=== PATIENT | female | born 1950 | race Caucasian/White ===

== ENCOUNTER 2021-07-28 14:22 | Outpatient (CLI) | payer MEDICARE, SELFPAY ==
--- NOTE | 2021-07-31 13:33 | WPDPFTINT ---
PFT Procedure Performed PFT Procedure Performed Spirometry with Pre/Post Bronchodilator Plethysmography (Lung Vol) Diffusing Cap (DLCO) Flow Vol Loop PFT Interpretation Lung volumes were measured with the body plethysmography method. The lung volumes are unremarkable. Spirometry showed normal expiratory flow rates and a normal FEV1 to FVC ratio of 75%. Following administration of a bronchodilator there was no significant increase in the expiratory flow rates. Lung diffusion capacity is mildly reduced at 76% predicted. The flow volume loop is unremarkable. Impression: Spirometry and lung volumes within the normal range. Borderline normal lung diffusion capacity.
--- NOTE | 2021-07-31 13:36 | WPDSIXMINUTE ---
Six Minute Walk Procedure Procedure Performed Pulmonary Stress Test (6 min walk) Six Minute Walk This 6 minute walk test was carried out with the patient breathing ambient air. The pre test oxyhemoglobin saturation was 90 8%. The patient was able to walk over 426 m with no stops in between. The perceived dyspnea prior to 6 minute walk test was 1 and post testing was 2 on the Bing dyspnea scale. During the 6 minute walk test the oxyhemoglobin saturation remained over 95%. Impression: No evidence of oxyhemoglobin desaturation on this testing.
== END 2021-07-28 14:23 | disposition home or self-care (01) ==
LOC: ANHPFT 14:23
PROVIDERS: PCP Family Medicine; Visit Provider Nurse Practitioner Family
DX: J44.9 Chronic obstructive pulmonary disease, unspecified (principal); R06.02 Shortness of breath
CPT/HCPCS: 94060; 94726; 94729

== ENCOUNTER 2021-11-17 12:05 | Outpatient (CLI) | payer MEDICARE, SELFPAY ==
--- NOTE | ~2021-11-17 | MMUS_ITS ---
EXAMINATION: MM diagnostic marlyn BI w lane, US breast LT complete HISTORY: Left breast pain and clear discharge TECHNIQUE: Additional 3-D tomosynthesis images of the breasts were performed and synthetic 2-D images were generated. CAD analysis was submitted and interpreted. High resolution left complete breast ult rasound was performed. COMPARISON: None BREAST PARENCHYMAL COMPOSITION: Breast composed of scattered areas of fibroglandular density FINDINGS: MAMMOGRAPHIC FINDINGS: There are no suspicious masses, calcifications or architectural distortion in either breast to sugges t malignancy. ULTRASOUND: Complete US of all 4 quadrants of the the left and retroareolar region was reviewed. Normal heterogen eous echotexture. At 12:00, 3 cm from the nipple there is a 3 mm cyst. No suspicious masses to sugges t malignancy. IMPRESSION: 1. No evidence for malignancy in either breast. 2. Routine yearly screening mammogram and regular clinical breast examination are recommended. BI-RADS Category 2: Benign finding(s). Reviewed, dictated and finalized at location A. HOUSE TECHNICIAN IMPRESSION: 1. No evidence for malignancy in either breast. 2. Routine yearly screening mammogram and regular clinical breast examination a re recommended. BI-RADS Category 2: Benign finding(s).
== END 2021-11-17 12:06 | disposition home or self-care (01) ==
PROVIDERS: PCP Family Medicine; Visit Provider Obstetrics & Gynecology
DX: N64.52 Nipple discharge (principal)
CPT/HCPCS: 76641; 77062; 77066; G0279

== ENCOUNTER 2022-11-13 10:14 | Emergency (ER) | payer MEDICARE, SELFPAY ==
[2022-11-13 10:26] VITALS: BP 159/83; PULSE 80; RESP 16; TEMP 37.2; O2SAT 98
--- NOTE | 2022-11-13 10:33 | ED.GENADULT ---
HPI - General Adult General Chief complaint: Upper Respiratory Infection Stated complaint: SINUS PAIN/ CONGESTION Source: patient Mode of arrival: ambulatory Limitations: no limitations History of Present Illness HPI narrative: Patient presents for evaluation of sick symptoms for last week. Symptoms include sinus congestion, mucopurulent discharge from the nares, cough productive cough of green sputum, and scratchy throat. She denies any fever, chills, nausea, vomiting. She has chronic shortness of breath which she attributes to COPD. Shortness of breath is not worse than her baseline. She does not wear oxygen. She does not smoke. No recent sick contacts to her knowledge. She contacted her optical advisor told her to take some lfts-zft-ydncbia cough medication. It was ineffective. In the past azithromycin has helped. Related Data Home Medications Medication Instructions Recorded Confirmed albuterol sulfate 90 mcg/actuation 1 inhalation inhalation Q4H 09/17/19 08/28/22 aerosol inhaler (ProAir HFA) Allergies Allergy/AdvReac Type Severity Reaction Status Date / Time prednisone Allergy Intermediate anxiety, Verified 08/28/22 13:46 diarrhea, vomiting levofloxacin Allergy Unknown unk Verified 08/28/22 13:46 Review of Systems Review of Systems: CONSTITUTIONAL: Denies fever, chills, or sweats. EYES: Denies visual changes, redness, or discharge. ENT: Reports Sinus congestion, mucopurulent discharge from her nares, sore throat. Denies otalgia. CARDIOVASCULAR: Denies chest pain, palpitations, or edema. RESPIRATORY: Reports productive cough of green sputum. Reports chronic SOB, unchanged from her baselin GASTROINTESTINAL: Denies abdominal pain, nausea, vomiting, or diarrhea. GENITOURINARY: Denies dysuria or hematuria. SKIN: Denies rash or itching. MUSCULOSKELETAL: Denies back pain, joint pain, or myalgia. NEUROLOGIC: Denies headache, numbness, dizziness, or weakness. PSYCHIATRIC: Denies anxiety or depression. [facility] Past Medical History Medical History COPD (chronic obstructive pulmonary disease) Former smoker History of COVID-19 Iron deficiency anemia Surgical History Surgical History No pertinent past surgical history Family History Family History Father Family history of heart disease in male family member before age 55 Mother Family history of heart disease in male family member before age 55 Sibling Family history of heart disease in male family member before age 55 Other Cerebrovascular accident Family history of cardiovascular disease Social History Social History Smoking status: Former smoker Smoking end date: 09/30/76 Alcohol intake: current Exam Narrative: GENERAL: Well-appearing, well-nourished, and in no acute distress. HEAD: Normocephalic, atraumatic. EYES: PERRLA and EOMI. ENT: bilateral maxillary sinus tenderness. There is mucopurulent discharge in her nares. Mucous membranes moist. Oropharynx without tonsillar hypertrophy exudate or other lesions. Bilateral TMs pearly stevens nonbulging NECK: Supple. No adenopathy or masses. No carotid bruits or JVD CHEST: Clear to auscultation. No respiratory distress. No wheezes rales or rhonchi HEART: Regular rate and rhythm. No murmur heard. Normal peripheral pulses. ABDOMEN: Soft, nontender, nondistended, normal active bowel sounds. EXTREMITIES: Normal range of motion. No edema. SKIN: Warm, dry, no rash. NEURO: No focal deficits. Alert and oriented x3. PSYCH: Normal mood and affect. Course Course Emergency Course: This is a 72-year-old female with history of COPD that presented for evaluation of sick symptoms. She meets criteria for ABRS based on symptom duration and quality of
== END 2022-11-13 10:36 | disposition home or self-care (01) ==
PROVIDERS: Emergency Provider Nurse Practitioner; PCP Nurse Practitioner Family
DX: J01.90 Acute sinusitis, unspecified (principal); J44.9 Chronic obstructive pulmonary disease, unspecified; Z87.891 Personal history of nicotine dependence; Z86.16 Personal history of COVID-19
CPT/HCPCS: 99213; G0463

== ENCOUNTER 2024-01-30 10:00 | Outpatient (CLI) | payer MEDICARE, SELFPAY ==
[2024-01-30 10:28] LABS: Basophils Percent Auto 0.9 % (0.2-1.2); Eosinophils Absolute Auto 0.3 K/mm3 (0-0.3); Eosinophils Percent Auto 6.1 % (0-4.4); Hematocrit 42.4 % (37.0-47.0); Hemoglobin 13.3 g/dL (12.0-15.0); Immature Granulocyte Absolute 0.01 K/mm3 (0.00-0.031); Immature Granulocyte Percent A 0.2 % (0-0.5); Lymphocytes Percent Auto 32.7 % (18.3-44.2); Mean Corpuscular HGB Conc 31.4 g/dl (32-36); Mean Corpuscular Hemoglobin 27.9 pg (26-34); Mean Corpuscular Volume 89.1 fl (80-100); Mean Platelet Volume 9.4 fl (7.4-10.4); Monocytes Absolute Auto 0.4 K/mm3 (0.1-0.6); Monocytes Percent Auto 8.1 % (2.6-8.5); Neutrophils Absolute Auto 2.4 K/mm3 (1.3-6.7); Platelet Count Result 285 k/mm3 (150-375); Red Blood Count 4.76 M/mm3 (4.2-5.4); Red Cell Distribution Width 12.7 % (11.5-14.5); White Blood Count 4.6 K/mm3 (4.5-10.0)
[2024-01-30 17:26] LABS: Iron 97 ug/dL (37-170)
[2024-01-30 17:52] LABS: Percent Iron Saturation 32 % (20-50)
== END 2024-01-30 10:01 | disposition home or self-care (01) ==
PROVIDERS: Nurse Practitioner Family; PCP Nurse Practitioner Family; Visit Provider Internal Medicine Hematology & Oncology
DX: D50.9 Iron deficiency anemia, unspecified (principal)
CPT/HCPCS: 36415; 82607; 82728; 83540; 83550; 85025

== ENCOUNTER 2024-02-09 09:43 | Emergency (ER) | payer MEDICARE, SELFPAY ==
--- NOTE | ~2024-02-09 | XR_ITS ---
XR lumbar spine 2-3V DATE: 02/09/2024 10:11 INDICATION: Left back pain radiating to left leg for one month TECHNIQUE: AP, lateral, coned lateral lumbosacral views COMPARISON: None FINDINGS: There is osteopenia. Minimal lumbar dextroscoliosis. The included lower thoracic and lumbar pedicles are intact. No fracture or bone destruction is detect ed. There is degenerative change of the apophyseal joints particularly at L5-S1 with associated grade 1 a nterolisthesis at L5-S1. There is multilevel degenerative disc disease, most severe at L3-4. There is minimal retrolisthesis at L4-5. The sacroiliac joints are intact. There is extensive calcification of the abdominal aorta without evidence of aneurysm. Surgical clips overlying right upper quadrant, likely due to cholecystectomy. IMPRESSION: Osteopenia Minimal dextro scoliosis Multilevel degenerative disc disease, most severe at L3-4 Mild retrolisthesis at L4-5 Degenerative changes of apophyseal joints and associated grade 1 anterolisthesis at L5-S1 Reviewed, dictated and finalized at location A. IMPRESSION: Osteopenia Minimal dextro scoliosis Multilevel degenerative disc disease, most severe at L3-4 Mild retrolisthesis at L4-5 Degenerative changes of apophyseal joints and associated grade 1 anterolisthesi s at L5-S1
[2024-02-09 09:46] VITALS: BP 149/70; PULSE 76; RESP 20; TEMP 36.4; O2SAT 97
[2024-02-09] MEDS: KETOROLAC 30 MG/ML VIAL (*BKC) IM (10:03)
--- NOTE | 2024-02-09 10:13 | ED.GENADULT ---
HPI - General Adult General Chief complaint: Extremity Injury, Lower Stated complaint: back pain Time Seen by Provider: 02/09/24 09:51 History of Present Illness HPI narrative: Patient is a 73-year-old female who presents ER with left-sided sciatic up. Reports it has been an issue over the last month. She reaggravated last night when she was on the ground scrubbing her floors. It radiates towards the groin. No difficulty with urination or defecation. No lower extremity weakness or numbness. She has tried some Tylenol without improvement. Related Data Home Medications Medication Instructions Recorded Confirmed losartan 25 mg tablet 25 mg PO DAILY 06/27/23 06/27/23 Allergies Allergy/AdvReac Type Severity Reaction Status Date / Time prednisone Allergy Intermediate anxiety, Verified 02/09/24 09:46 diarrhea, vomiting levofloxacin Allergy Unknown unk Verified 02/09/24 09:46 Review of Systems Constitutional: Constitutional: Reports no additional constitutional complaints PMFSH Past Medical History Medical History COPD (chronic obstructive pulmonary disease) Former smoker History of COVID-19 Iron deficiency anemia Surgical History Surgical History No pertinent past surgical history Family History Family History Father Family history of heart disease in male family member before age 55 Mother Family history of heart disease in male family member before age 55 Sibling Family history of heart disease in male family member before age 55 Other Cerebrovascular accident Family history of cardiovascular disease Social History Social History Smoking status: Former smoker Smoking end date: 09/30/76 Alcohol intake: current Exam Narrative: GENERAL: Well-appearing, well-nourished, and in no acute distress. HEAD: Normocephalic, atraumatic. Mucous membranes moist. CHEST: Clear to auscultation. No respiratory distress. HEART: Regular rate and rhythm. Normal peripheral pulses. Back: No midline tenderness at T/L-spine. There is moderate tenderness of left SI region. EXTREMITIES: Normal range of motion. No edema. NEURO: Alert and oriented x3. PSYCH: Normal mood and affect. Course Course Emergency Course: pain improved with Toradol. Discussed conservative care with anti-inflammatories muscle relaxers. Patient verbalized understanding. Discharge home. Vital Signs Vital signs: Vital Signs Temperature 97.6 F 02/09/24 09:46 Pulse Rate 76 02/09/24 09:46 Respiratory Rate 20 02/09/24 09:46 Blood Pressure 149/70 H 02/09/24 09:46 Pulse Oximetry 97 02/09/24 09:46 Oxygen Delivery Room Air 02/09/24 09:46 Temperature 97.6 F 02/09/24 09:46 Pulse Rate 76 02/09/24 09:46 Respiratory Rate 20 02/09/24 09:46 Blood Pressure 149/70 H 02/09/24 09:46 Pulse Oximetry 97 02/09/24 09:46 Oxygen Delivery Room Air 02/09/24 09:46 Medical Decision Making Vital Signs Vital Signs: Vital Signs Temperature 97.6 F 02/09/24 09:46 Pulse Rate 76 02/09/24 09:46 Respiratory Rate 20 02/09/24 09:46 Blood Pressure 149/70 H 02/09/24 09:46 Pulse Oximetry 97 02/09/24 09:46 Oxygen Delivery Room Air 02/09/24 09:46 Temperature 97.6 F 02/09/24 09:46 Pulse Rate 76 02/09/24 09:46 Respiratory Rate 20 02/09/24 09:46 Blood Pressure 149/70 H 02/09/24 09:46 Pulse Oximetry 97 02/09/24 09:46 Oxygen Delivery Room Air 02/09/24 09:46 Discharge Plan Discharge Clinical Impression: Sciatica Patient Disposition: Home, Self-Care Condition: Stable Instructions: Sciatica (ED) Additional Instructions: Please return to the emergency department if you develop severe pain that is not controlled b
== END 2024-02-09 11:15 | disposition home or self-care (01) ==
PROVIDERS: Emergency Provider Emergency Medicine; PCP Registered Nurse
DX: M54.32 Sciatica, left side (principal); J44.9 Chronic obstructive pulmonary disease, unspecified; Z87.891 Personal history of nicotine dependence; Z86.16 Personal history of COVID-19; Z86.2 Personal history of diseases of the blood and blood-forming organs and certain disorders involving the immune mechanism
CPT/HCPCS: 72100; 96372; 99283; J1885

== ENCOUNTER 2024-05-13 00:52 | Day surgery (SDC) | payer MEDICARE, SELFPAY ==
--- NOTE | 2024-05-07 08:03 | PM.IMHP ---
H&P: HPI History of Present Illness Date/Time: 05/07/24 08:03 Chief Complaint: Patient presents shoulder pain right. She has rotator cuff tear and has tried extensive conservative treatment. As she is at the point where she would like surgical reconstruction. Review of Systems Musculoskeletal: Musculoskeletal: Reports arthralgias, Reports joint swelling and Reports stiffness [facility] Past Medical History Medical History COPD (chronic obstructive pulmonary disease) Former smoker History of COVID-19 Iron deficiency anemia Surgical History Surgical History No pertinent past surgical history Family History Family History (Updated 04/21/24 @ 08:48 by SHERICE Pugh) Father Family history of heart disease in male family member before age 55 Heart disease Mother Family history of heart disease in male family member before age 55 Sibling Family history of heart disease in male family member before age 55 Heart disease Mouth cancer Sibling Heart disease Other Cerebrovascular accident Family history of cardiovascular disease Social History Social History (Updated 04/21/24 @ 08:49 by SHERICE Pugh) Smoking status: Former smoker Second hand tobacco smoke exposure: Yes Smoking end date: 09/30/76 Alcohol intake: current Substance use: never Substance use type: does not use Do You Feel Safe in your Home?: Yes Lack of Transportation: No Lack of Food: Never True Current Housing: I Have Housing Concerned About Future Housing: No Difficulty Paying Gas/Electric Bills: No Difficulty Paying for Meds: No Currently Unemployed: No Education: High School Diploma/GED Difficulty w/ Childcare or Family Care: No Living arrangements: with family Occupation/Education: retired 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[employer] Gender identity (if verbalized by the patient): Female Meds Home Medications and Allergies Home Medications Medication Instructions Recorded Confirmed Type fluticasone propionate 115 See Rx Instructions .Route 01/28/23 04/21/24 Rx mcg-salmeterol 21 mcg/actuation .COMPLEX #12 grams HFA inhaler (Advair HFA) losartan 25 mg tablet 25 mg PO DAILY 06/27/23 04/21/24 History diclofenac sodium 75 mg 75 mg PO BID #60 tabs 03/24/24 04/21/24 Rx tablet,delayed release Allergies Allergy/AdvReac Type Severity Reaction Status Date / Time prednisone Allergy Intermediate anxiety, Verified 04/21/24 08:46 diarrhea, vomiting levofloxacin AdvReac Intermediate Nausea Verified 04/21/24 08:46 Exam Narrative: On exam she has difficulty raising arm above the horizontal. She is weak in abduction external rotation is impingement. She is tender over the AC joint as well. Neurologically she appears to be grossly intact. Although she does have a bit of weakness and give-way. Shoulder X-Ray 02/20/24 Orthopedics Result Report 02/20/24 Lumbar Spine X-Ray 02/09/24 Assessment and Plan Assessment and plan (1) Rotator cuff tear, right: Code(s): M75.101 - Unspecified rotator cuff tear or rupture of right shoulder, not specified as traumatic Status: Acute Assessment and Plan: Patient has rotator cuff tear right. She has got some acromioclavicular arthritis as well.. She has failed conservative treatment. She would like to consider surgical reconstruction. I have discussed treatment options with the risks, benefits, limitations, and alternatives in detail. She understands and agrees would like to proceed. She is well aware the fact that on the repair depends on the size of the tear as well as the quality of the tissue available. Will proceed per her request. (2) Acromioclavicular joint arthritis: Code(s): M19.019 - Prima
[2024-05-11 09:29] VITALS: BMI 30.1
--- NOTE | 2024-05-11 09:30 | PC.NURSE ---
Report to the Outpatient Waiting Room, entrance under the green pavilion located off [facility], at time __8:00 AM on date _05/13/24 . Planned Procedure Time: _10:00 AM . Time changes happen often and if your time is changed the preop area will call you the afternoon before. - You and your visitor will be asked to self-screen and do not enter if you have any COVID symptoms. - A mask is optional within the hospital at this time. Patients may have clear liquids (water, carbonated beverages, clear teas, apple juice) until 3 hours prior to surgery (7:00AM)with a maximum of 20 ounces. - No food from midnight until time of surgery - Infants may have breast milk until 4 hours before surgery, infant formula 6 hours prior to surgery. - Children will be allowed to drink immediately following surgery. If applicable, please bring a bottle or sippy cup to assist with drinking. Juice, water, soda, and popsicles are readily available. For infants on formula, please bring formula the day of surgery. Pacifiers are allowed. Take the following medications with a SIP of water the morning of surgery: ____ADVAIR INHALER DO NOT STOP ANY OF YOUR OTHER PRESCRIPTION MEDICATIONS PRIOR TO SURGERY ?EXCEPT THE FOLLOWING Medications to discontinue per physician DICLOFENAC PER DR UNNEZ,HOLD ALL VITAMINS AND SUPPLEMENTS 3 DAYS PRE OP.PT STATES LAST DOSE 05/10/24 Please no make-up, nail azeri, hairspray, perfume, deodorant, or body powder the day of surgery. No jewelry (including any body piercings) or valuables the day of surgery, leave them at home. Please take a shower or bath the night before, or the morning of, surgery with an antibacterial soap. Wear comfortable, loose fitting clothing. Children are encouraged to wear pajamas. - Jewelry must be removed prior to entering the operating room. Rings and piercings that are not removed may be cut off. - The hospital will not accept responsibility for valuables. - Please leave all valuables, including medications, at home the day of surgery. If you are going home after surgery, a licensed construction driver must drive you home. - NO public transportation without another adult if you receive anesthesia. - We recommend that an adult stay with you for 24 hours following discharge. - We also recommend that you do not drive, make important decision, drink alcoholic beverages, or take any drugs that were not prescribed by your health care provider for at least 24 hours after your discharge time. Follow any additional instructions given to you from your surgeon. If you or anyone in your household have experienced Covid symptoms in the past week, please notify your surgeon or the nurse liaison at the phone number below for possible testing. Telephone instructions given to __PATIENT and asked if any additional questions and then verbalized understanding. Patient advised to call surgeon office or pre surgery nurse liaison [phone] if any additional questions.
[2024-05-13] VITALS (11 sets, daily range): BP systolic 130–179; BP diastolic 62–82; PULSE 51–78; RESP 10–20; TEMP 36.1; O2SAT 93–99
[2024-05-13] MEDS: LACTATED RINGERS 1,000 ML 30 ML IV CONT ×2 (08:40→11:00)
--- NOTE | 2024-05-13 08:48 | WPDANESEPPF ---
Anes - Initial Pre Proc Eval Procedure: Operation Date: 05/13/24 10:00 Proposed Procedures p Right Shoulder Arthroscopy with Open Rotator Cuff Repair and Distal Clavicle Excision - Farrukh Gamboa MD Date/Time: 05/13/24 08:48 Surgeon: Farrukh Gamboa MD Pre Op Diagnosis: Right Shoulder Rotator cuff tear, ac arthritis Patient Data Age: 73 Gender: F Height: 1.52 m Weight: 69.9 kg Last Vital Signs Temp 36.1 C L 05/13/24 08:10 Pulse 61 05/13/24 08:10 Resp 18 05/13/24 08:10 BP 179/67 H 05/13/24 08:10 Pulse Ox 99 05/13/24 08:10 O2 Del Method Room Air 05/13/24 08:10 Allergies Allergy/AdvReac Type Severity Reaction Status Date / Time prednisone Allergy Intermediate anxiety, Verified 05/13/24 08:43 diarrhea, vomiting levofloxacin AdvReac Intermediate Nausea Verified 05/13/24 08:43 Home Medications Medication Instructions Recorded Confirmed Type diclofenac sodium 75 mg 75 mg PO BID #60 tabs 03/24/24 05/13/24 Rx tablet,delayed release fluticasone propionate 115 2 puff inhalation QAM 05/11/24 05/13/24 History mcg-salmeterol 21 mcg/actuation HFA inhaler (Advair HFA) lisinopril 10 mg tablet 10 mg PO DAILY 05/11/24 05/13/24 History quinine-vitamin E capsule 1 cap PO QPM 05/11/24 05/13/24 History Patient hx anesthesia problems: none Family hx anesthesia problems: none Results Review: All pre-operative results and documents have been reviewed as part of the pre-operative evaluation. [facility] Past Medical History Medical History COPD (chronic obstructive pulmonary disease) Former smoker History of COVID-19 Iron deficiency anemia Surgical History Surgical History No pertinent past surgical history Family History Family History Father Family history of heart disease in male family member before age 55 Heart disease Mother Family history of heart disease in male family member before age 55 Sibling Family history of heart disease in male family member before age 55 Heart disease Mouth cancer Sibling Heart disease Other Cerebrovascular accident Family history of cardiovascular disease Social History Social History Smoking packs per day: 1 Smoking cigarettes per day: 20.0 Years smoked: 20 Smoking pack-years: 20.00 Smoking status: Former smoker Tobacco type: cigarettes Second hand tobacco smoke exposure: Yes Smoking end date: 09/30/76 Additional smoking assessment comments: UP UNTIL 2013 WOULD SMOKE MAYBE COUPLE CIGARETTES EVERY NOW AND THEN Alcohol intake: current Alcohol use details: 2-3 DRINKS PER MONTH Substance use: never Substance use type: does not use Do You Feel Safe in your Home?: Yes Lack of Transportation: No Lack of Food: Never True Current Housing: I Have Housing Concerned About Future Housing: No Difficulty Paying Gas/Electric Bills: No Difficulty Paying for Meds: No Currently Unemployed: No Education: High School Diploma/GED Difficulty w/ Childcare or Family Care: No Living arrangements: with family Occupation/Education: retired 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
[2024-05-13] MEDS: KETOROLAC 15 MG/ML VIAL (*BKC) IV PUSH (08:51)
[2024-05-13] MEDS: ACETAMINOPHEN 500 MG TABLET 1000 MG PO (08:52)
--- NOTE | 2024-05-13 09:04 | WPDHPUPDATE1 ---
History and Physical Update Update Date/Time: 05/13/24 09:04 History and Physical has been reviewed, including an updated exam of the patient. There are NO changes in the patient's condition. Risks, benefits, and alternatives have been discussed and questions answered. Patient agrees to proceed with procedure. Rotator Cuff Repair and Distal Clavicle Excision
[2024-05-13] MEDS: ceFAZolin 2 GM/D5W 50 ML 2 GM/50 ML BAG IVPB (09:45)
[2024-05-13] MEDS: LIDO 1%/EPINEPHRINE 1:100,000 20 ML VIAL 50 ML INFILTRATE (10:19)
--- NOTE | 2024-05-13 10:51 | W.PM.PROC2 ---
Procedure Note - Detailed Date of Procedure 05/13/24 Pre-op Diagnosis Right Shoulder Rotator cuff tear, ac arthritis Post-op Diagnosis Same Procedure Performed Rotator cuff repair, distal clavicle excision Surgeon Farrukh Gamboa MD Anesthesia General Indications Jameel Description of Procedure Patient brought to the operative room #7. A general anesthetic was administered. The patient was placed in the beach chair position with the RIGHT shoulder exposed.? After sterile prep and drape, standard posterior and lateral portals were used for arthroscopy. The joint itself looked reasonably good the biceps tendon was intact.? There was fraying and tearing of the rotator cuff area in the supraspinatus tear region. This was gently debrided.? The subacromial space had an intense bursa, this was debrided with a shaver and acromioplasty performed arthroscopically.? The subacromial space was quite tight initially. I then proceeded to open the shoulder. A longitudinal incision made from the AC joint distalward over the shoulder.? Dissection carried down to the fascia. The fascia overlying the acromioclavicular joint was split. The AC joint found and a distal clavicle excision performed removing 3 to 4 millimeters of bone.? The edges beveled.? The deltoid was then split from the tip of the acromion. The remainder of the bursa was debrided.? The rotator cuff was torn in the Infraspinatus-supraspinatus interval. The tear was quarter sized. This was debrided and repaired to bone using #2 Ethibond suture.? Because of the size of the tear, a Mitek anchor was used to supplement the repair. At this point the deltoid was repaired to itself,the acromion and the trapezius #2 Ethibond. The skin was closed with 2-0 Vicryl and ashleigh.? Sterile dressing applied patient tolerated well left the operating room satisfactory condition. Estimated Blood Loss 50 Drains No Packing No Pathology None sent Complications No immediate complications Condition Stable Disposition PACU [facility] Billing Surgery - Charge Forward: Surgery Billing ([id number] Rotator Cuff Repair// [id number] Distal Clavicle Excision)
[2024-05-13] MEDS: fentaNYL CITRATE INJ (*CRX) 100 MCG/2 ML VIAL 25 MCG IV PUSH ×3 (11:39→11:49)
[2024-05-13] MEDS: oxyCODONE HCL (*CRX) 5 MG TAB IR PO (13:34)
== END 2024-05-13 14:25 | disposition home or self-care (01) ==
PROVIDERS: PCP Registered Nurse; Visit Provider Orthopaedic Surgery
PROC: (CPT 29805; principal; 2024-05-13 10:00)
DX: M75.101 Unspecified rotator cuff tear or rupture of right shoulder, not specified as traumatic (principal); M19.011 Primary osteoarthritis, right shoulder; J44.9 Chronic obstructive pulmonary disease, unspecified; Z79.51 Long term (current) use of inhaled steroids; Z87.891 Personal history of nicotine dependence; E66.9 Obesity, unspecified; Z68.30 Body mass index [BMI] 30.0-30.9, adult
CPT/HCPCS: 23412; 23120; A9270; C1713; J0330; J0690; J1100; J1885; J2405; J2704; J3010; J7120

== ENCOUNTER 2024-07-22 09:57 | Outpatient (CLI) | payer MEDICARE, SELFPAY ==
[2024-07-22 10:28] LABS: Basophils Percent Auto 0.7 % (0.2-1.2); Eosinophils Absolute Auto 0.3 K/mm3 (0-0.3); Eosinophils Percent Auto 6.1 % (0-4.4); Hematocrit 39.7 % (37.0-47.0); Hemoglobin 12.6 g/dL (12.0-15.0); Immature Granulocyte Absolute 0.01 K/mm3 (0.00-0.031); Immature Granulocyte Percent A 0.2 % (0-0.5); Lymphocytes Absolute Auto 1.29 K/mm3 (0.9-3.2); Lymphocytes Percent Auto 23.2 % (18.3-44.2); Mean Corpuscular HGB Conc 31.7 g/dl (32-36); Mean Corpuscular Hemoglobin 27.9 pg (26-34); Mean Corpuscular Volume 87.8 fl (80-100); Mean Platelet Volume 9.2 fl (7.4-10.4); Monocytes Absolute Auto 0.4 K/mm3 (0.1-0.6); Monocytes Percent Auto 7.5 % (2.6-8.5); Neutrophils Absolute Auto 3.5 K/mm3 (1.3-6.7); Neutrophils Percent Auto 62.3 % (45.5-73.1); Platelet Count Result 315 k/mm3 (150-375); Red Blood Count 4.52 M/mm3 (4.2-5.4); Red Cell Distribution Width 12.5 % (11.5-14.5); White Blood Count 5.6 K/mm3 (4.5-10.0)
[2024-07-22 11:18] LABS: Anion Gap 7 mmol/L (4-12); Blood Urea Nitrogen 20 mg/dL (7-17); Calcium 9.5 mg/dL (8.4-10.2); Carbon Dioxide 23 mmol/L (22-30); Chloride 107 mmol/L (98-107); Estimated Glomerular Filt Rate > 60; Glucose 93 mg/dL (65-110); Potassium 4.1 mmol/L (3.4-5.0); Sodium 137 mmol/L (137-145)
[2024-07-22 19:47] LABS: Iron 88 ug/dL (37-170)
[2024-07-22 19:59] LABS: Percent Iron Saturation 27 % (20-50)
== END 2024-07-22 09:58 | disposition home or self-care (01) ==
LOC: ANHLAB 10:00
PROVIDERS: PCP Registered Nurse; Visit Provider Internal Medicine Hematology & Oncology
DX: D64.9 Anemia, unspecified (principal)
CPT/HCPCS: 36415; 80048; 82607; 82728; 83540; 83550; 85025

== ENCOUNTER 2024-08-10 10:00 | Outpatient (RCR) | payer MEDICARE, SELFPAY ==
[2024-07-06 10:50] VITALS: BP_SYST 95
--- NOTE | 2024-07-06 11:54 | OPREHPOC ---
Outpatient Therapy Plan of Care This is a Multidisciplinary Plan of Care that may contain components documented by all disciplines (PT, OT, and ST.) PT Problem 1 PT Problem #1 Knowledge Deficit PT Goal 1 Goal / Goal Update *indep with HEP * correct shoulder position with exercises Target Visit 10 PT Problem 2 PT Problem #2 Pain PT Goal 1 Goal / Goal Update 1* pt report she is able to sleep in her bed/ no longer in recliner 2* pain rating of 2/10 at worst with increased activity Target Visit 10 PT Problem 3 PT Problem #3 Impaired Flexibility PT Goal 1 Goal / Goal Update increase R shoulder ROM, to improve use with reaching into cabinets, kitchen, home and self care tasks 1* flexion 140' 2* abduction 120 3* IR- reach behind back, palm to above waist 4* ER- reaching behind head, palm to back of head Target Visit 10 PT Problem 4 PT Problem #4 Impaired Strength PT Goal 1 Goal / Goal Update increase strength of R UE, for use of her dominant arm with home and self care activities: in standin reps 1* flexion to 120' with 2# hand weight 2* abduction to 90' with 2# hand weight Target Visit 10
--- NOTE | 2024-07-06 11:54 | PTOPEVAL1 ---
Assessment and note entered by Jenna Fischer, PT Evaluation Information Assessment Status Evaluation ICD-10 Condition Codes (PT) M25.511,Z47.89 Onset 05-13-24 Subjective Information had R rotator cuff repair 05-13-24; R hand dominant; since surgery, just been resting and not doing much; used sling until few weeks ago; told her to not do any lifting with R arm; Activity: prior to surgery-- indep and active; retired; want to return to fishing; since surgery---unable to wipe off kitchen table, lifting pans with cooking, vacuum; doing heavier chores; Reported Pain Level Pain Score Self Report Additional Pain Score Comments pain range in the past week: 1- 2/10; increase pain: reach out with R arm; quick motions with arm; lie on R side decrease pain: rest, tylenol PRN no longer using ice for pain; with sleeping- in recliner, sleep without pain; in the bed, pain wakes her up; Assessment PT Clinical Summary Maribell is 8 weeks post of R rotator cuff repair. She is R hand dominant, sling was removed 2 weeks ago and has been using her R arm with light activity at home. Self assessment QUICK DASH rating of 27% limitation in activity level. She is sleeping in the recliner due to shoulder pain. With the evaluation: R shoulder active ROM: flexion 105', abduction 90', IR- reach behind back palm to sacrum and ER- reach towards back of head, palm to behind her ear. Abduction is the most painful motion. Skilled PT services are indicated for modalities to decrease pain, therapeutic exercises- starting with active- assisted with progression to active and strengthening as tolerated, with education for posture and HEP. Plan of Care Interventions Electrical Stimulation,Hot Pack/Cold Pack,Manual Therapy,Neuro Re-education,Patient/Caregiver Education,Therapeutic Activities,Therapeutic Exercise,Ultrasound,Other Other Interventions taping PT Services Indicated Yes Treatment Frequency and 2x/wk for 10 visits Duration These treatments will address the objective and functional deficits as defined above. The patient will be advanced safely and appropriately in order for the patient to progress towards his/her prior level of function. Additional exercises will be introduced and as well as a comprehensive home exercise program upon discharge, if needed, ?to ensure carryover of functional gains achieved in the clinic. This treatment plan has been reviewed and agreement upon by the patient.
--- NOTE | 2024-08-10 10:37 | PTOPDC ---
Assessment and note entered by Jenna Fischer, PT Discharge Report Assessment Status Discharge ICD-10 Condition Codes (PT) M25.511,Z47.89 Onset 05-13-24 Subjective Information at home, am able to do everything she usually does but avoids lifting; have not been shaking out her floor rugs; was pleased and he released her; doing the exercises at home and using the band for strengthening. Reported Pain Level Pain Score Self Report Additional Pain Score Comments pain range in the past week 0-2/10; discomfort of shoulder when over do it; is sleeping in her bed; is not lying on her R side, but in the bed Assessment PT Clinical Summary Maribell has received 10 PT sessions Compared to the initial evaluation: pain has decreased; is able to sleep in the bed, instead of the recliner, but not able to lie on her R side; Self assessment Quick DASH rating from 27 to 5% limitation in activity; active ROM of R shoulder: flexion 140', abduction 140', IR- reach behind back, palm to above waist and ER- reaching behind head, palm to back of head. Strength R shoulder: shoulder flexion with 3# hand weight and shoulder abduction 2# hand weight x 5 reps; elbow flexion/extension 5# x 10 reps Bilateral UE lift floor/waist 10# x 6 reps; R hand carry 10# and walk 30'. The goals were achieved. Discharge PT services. She is to continue with her HEP. Plan of Care PT Services Indicated No
== END 2024-08-10 11:48 | disposition home or self-care (01) ==
LOC: ANHPT 10:00
PROVIDERS: PCP Registered Nurse; Visit Provider Orthopaedic Surgery
DX: Z48.89 Encounter for other specified surgical aftercare (principal); Z98.890 Other specified postprocedural states
CPT/HCPCS: 97014; 97035; 97110; 97140; 97161; 97530; G0283

== ENCOUNTER 2025-05-07 14:00 | Emergency (ER) | payer MEDICARE, SELFPAY ==
--- NOTE | ~2025-05-07 | XR_ITS ---
XR elbow LT min 3V 05/07/2025 14:51 Indication: Left elbow pain Procedure: 4 views left elbow Comparison: No prior studies for comparison. Findings: There is a joint effusion. No fracture, subluxation or dislocation is identified. Impression: 1: Moderate joint effusion. No fracture identified. Consider conservative therapy and repeat x-rays i n 7-to 10 days. Reviewed, dictated and finalized at location A. Impression: 1: Moderate joint effusion. No fracture identified. Consider conservative thera py and repeat x-rays in 7-to 10 days.
--- NOTE | ~2025-05-07 | CT_ITS ---
EXAMINATION: CT BRAIN W/O DATE: 05/07/2025 14:45 INDICATION: Fell off bathtub. Hit head. TECHNIQUE: Computed tomography (CT) of the head was performed without intravenous contrast. The dose- length product was 681.00 mGy-cm. COMPARISON: No prior studies for comparison. FINDINGS: Normal brain parenchymal volume for age. Normal stevens-white differentiation. No acute intrac ranial hemorrhage, infarction, mass or mass effect.66 No ventriculomegaly or midline shift. Midline sagittal images demonstrate a normal corpus callosum, c raniovertebral junction and sella turcica. Basilar cisterns are patent. Paranasal sinuses and mastoids are pneumatized. No depressed skull fractures. There is a mucous reten tion cyst of the right maxillary sinus. There is a left frontal craniotomy defect. There is a chronic left frontal lobe infarction near the vertex. IMPRESSION: 1. No acute intracranial abnormality. 2: Chronic left frontal lobe infarction near the vertex. Reviewed, dictated and finalized at location A.
--- NOTE | ~2025-05-07 | XR_ITS ---
XR wrist LT min 3V 05/07/2025 14:51 INDICATION: Left wrist pain after fall PROCEDURE: 4 views left wrist COMPARISON: No prior studies for comparison. FINDINGS: Fracture, dislocation or subluxation is not identified. The soft tissues appear within norm al limits. No foreign bodies are identified. IMPRESSION: 1: NO ACUTE BONE OR JOINT ABNORMALITY IDENTIFIED. Reviewed, dictated and finalized at location A.
[2025-05-07 14:03] VITALS: BP 145/75; PULSE 100; RESP 20; TEMP 36.6; O2SAT 98
--- OUTSIDE RECORDS SUMMARY | 2025-05-07 14:03 | XMS_ITS | Clinical Summary ---
Author Organization [facility]igil Address [address] [place] [address] Care Team Providers Care Seater Assembler Name Role Phone Unavailable Primary Care Provider Unavailabl e Allergies Active Allergy Reactions Criticality Noted Date Comments Levofloxacin Nausea and Vomiting Low 11/14/2020 Makes her feel wierd Prednisolone Nausea and Vomiting High 04/22/2020 Sulfa (Sulfonamide Antibiotics) Nausea and Vomiting High 04/22/2020 Medications Advair HFA 115-21 mcg/actuation HFA Aerosol Inhaler INL 2 PFS PO BID 04/14/2020 Active melatonin 3 mg Tablet Take by mouth. Active acetaminophen (TYLENOL) 325 mg tablet Take 650 mg by mouth. Active oxyCODONE (ROXICODONE) 5 mg tablet 01/26/2022 Active lisinopriL (PRINIVIL) 10 mg tablet Take 10 mg by mouth daily. 05/09/2023 Active Active Problems Problem Noted Date Diagnosed Date Iron deficiency anemia 04/22/2020 Encounters Date Type Department Care Team Description 04/14/2025 External Device Data STL ABSTRACTION Provider, Abstract 04/14/2025 External Device Data STL ABSTRACTION Provider, Abstract 03/16/2025 External Device Data STL ABSTRACTION Provider, Abstract 02/18/2025 External Device Data STL ABSTRACTION Provider, Abstract 02/17/2025 External Device Data STL ABSTRACTION Provider, Abstract 02/16/2025 External Device Data STL ABSTRACTION Provider, Abstract from Last 3 Months Family History Medical History Relation Name Comments Cancer Brother 1 Heart Disease Brother 3 Heart Disease Father Heart Disease Mother Relation Name Status Comments Brother 1 Alive Brother 2 Brother 3 Daughter Alive Father Mother Sister Alive Son Alive Social History Tobacco Use Types Packs/Day Years Used Date Smoking Tobacco: Former Cigarettes Q uit: 04/22/1968 Smokeless Tobacco: Never Tobacco Cessation:Counseling Given: Not Answered Alcohol Use Standard Drinks/Week Comments Yes 0 (1 standard drink = 0.6 oz pur e alcohol) OCASSIONLLY Comments No Sex and Gender Information Value Date Recorded Sex Assigned at Not on file Legal Sex Female 8:34 AM CDT Gender Identity Not on file Sexual Orientation Not on file Last Filed Vital Signs Vital Sign Reading Time Taken Comments Blood Pressure 137/64 07/27/2024 8:33 AM CDT Pulse 74 07/27/2024 8:33 AM CDT Temperature 36.7 C (98 F) 07/27/2024 8:33 AM CDT Respiratory Rate 16 07/27/2024 8:33 AM CDT Oxygen Saturation 97% 07/27/2024 8:33 AM CDT Inhaled Oxygen Concentration - - Weight 71.6 kg (157 lb 12.8 oz) 07/27/2024 8:33 AM CDT Height 152.4 cm (5') 05/10/2023 12:16 PM CDT Body Mass Index 30.82 05/10/2023 12:16 PM CDT Plan of Treatment Upcoming Encounters Date Type Department Care Team (Late st Contact Info) Description 07/29/2025 2:15 PM CDT Office Visit [facility] [place] [address] [place] [address] [facility] [address] [place] [address] Josep Steward MD [address] [facility] [address] [place] [address] Health Maintenance Due Date Last Done Comments DTAP/TDAP/TD VACCINES (1 - Tdap) 1968 PNEUMOCOCCAL VACCINE 50+ YEA RS (1 of 2 - PCV) 1968 FIT-DNA Q 3 years 1994 Flex Sig/CT Colonography Q 5 years 1994 ZOSTER VACCINE (1 of 2) 1999 OSTEOPOROSIS SCREENING 2014 FIT/FOBT Q 1 year 04/29/2021 04/29/2020 COVID-19 Vaccine (2023-2 5 season) 2024 07/06/2022, 07/11/2021, 12/18/2020, Additional history exists RSV VACCINE (60+ or ) (1 - 1-dose 75+ series) 2024 INFLUENZA VACCINE (#1) 2025 08/26/2023, 2021 COLORECTAL SCREENING 02/14/2028 02/13/2018 Colorectal Cancer Screening 02/14/2028 Procedures Procedure Name Priority Date/Time Associated Diagnosis Comments OCCULT BLOOD IMMUNOASSAY, COLORECTAL SCREEN Routine 04/29/2020 Chronic anemia from Last 3 Months or Most Recently Relevant to Health Maintenance Results * OCCULT BLOOD IMMUNOASSAY, COLORECTAL SCREEN (04/29/2020) Stool STOOL SPECIMEN / Unknown Josep Steward MD BODY FLUIDS AND STOOLS Final Re sult NON [facility] from Last 3 Months or Most Recently Relevant to Health Maintenance Insurance MEDICARE PART A AND B [employer]ET[employer] MEDICARE SUPP AESSI
--- OUTSIDE RECORDS SUMMARY | 2025-05-07 14:03 | XMS_ITS | Continuity of Care Document ---
Author Organization [facility]erg[facility] with [facility] Address [address] [place] [address] Phone Care Team Providers Care Densitometrist Name Role Phone Herlinda Dee Unavailable Unavailable Advance Directives Directive Yes / No Effective Date File Name No Information Encounters Encounter Description Practice Location Reason(s) For Visit Diagnoses Date Provider Providers Copied on Encounter [facility], [address], [place], [place], [id number], [place] tel:[phone] [facility] No Information Dec-2 1-200 0 Leila Pate. [address] , [address], [place], [address], [place]. tel:[phone] Family History Family Member Type Diagnosis Age At Onset No Information Payers Payer name Insurance type Covered libertarian ID Authoriza tion(s) No Information Social History Type Description Quantity Date Captured Comments Sex Female Smoking Status No Information Chief Complaint And Reason For Visit No Information Reason For Referral Reason For Referral No Information History Of Present Illness Encounter Date Complaint History Of Prese nt Illness No Information Functional Status Date Functional Assessmen t No Information Instructions Date Instruction Additional Infor mation No Information Assessments Type Assessment Date No Information Patient Care Teams Name Effective Dates (start - stop) Status Members No Information
--- OUTSIDE RECORDS SUMMARY | 2025-05-07 14:03 | XMS_ITS | Clinical Summary ---
Author Organization [facility] Address [address] [place] [address] Care Team Providers Care Mate Chief Name Role Phone Sandra Tomlinson NP Primary Care Provider [phone] Leo Smiley MD Unavailable [phone] Christina Gleason MD PhD Unavaila ble Allergies Active Allergy Reactions Criticality Noted Date Comments Prednisone Nausea & Vomiting,Vomiting Low 2 diziness Medications Advair HFA 115-21 mcg/actuation inhalerIndications :Bronchospasm Prevention with COPD 2 Active acetaminophen (TYLENOL) 325 mg tablet Take 2 tablets (650 mg total) by mouth every 6 (six) hours as needed for pain Active UNABLE TO FIND as needed Opal's Leg cramps Active melatonin tablet Take by mouth nightly as needed for sleep Active oxyCODONE (ROXICODONE) 5 mg immediate release tabletIndications: Pain Take 1 tablet (5 mg total) by mouth every 4 (four) hours as needed for pain for up to 8 doses 8 tablet 2 Active ondansetron ODT (ZOFRAN-ODT) 4 mg disintegrating tabletIndications: Prevention of Post-Operative Nausea and Vomiting Take 1 tablet (4 mg total) by mouth every 8 (eight) hours as needed for nausea or vomiting 20 tablet 2 Active azithromycin (ZITHROMAX) 250 mg tablet FOLLOW PACKAGE DIRECTIONS [address] (VOLTAREN) 75 mg EC tablet Take 1 tablet (75 mg total) by mouth 2 (two) times a day 4 Active lisinopriL (PRINIVIL,ZESTRIL) 10 mg tablet Take 1 tablet (10 mg total) by mouth daily 3 Active naproxen (NAPROSYN) 375 mg tablet Take 1 tablet (375 mg total) by mouth 2 (two) times a day 4 Active predniSONE (DELTASONE) 10 mg tablet Take 1 tablet (10 mg) by mouth 2 (two) times a day 4 Active TiZANidine (ZANAFLEX) 2 mg capsule TAKE 1 CAPSULE BY MOUTH EVERY 8 HOURS NEEDED FOR MUSCLE SPASMS 4 Active Active Problems Problem Noted Date Diagnosed Date Fibrocystic breast changes, bilateral 11/17/2022 Discharge from left nipple 01/18/2022 Overview (01/18/2022): Added automatically from request for surgery [id number] Abdominal mass 11/09/2011 Surgical History Surgery Date Site/Laterality Comments TX TOTAL ABDOMINAL HYSTERECT W/WO RMVL TUBE OVARY 1991? Hysterectomy - (Added by TW Conv) BRAIN TUMOR EXCISION 09/30/2000 - 09/29/2001 CHOLECYSTECTOMY 09/30/2016 - 09/29/2017 KIDNEY STONE SURGERY 09/30/2017 - 09/29/2018 OVARIAN CYST SURGERY 09/30/2018 - 09/29/2019 Medical History Medical History Date Comments COPD (chronic obstructive pulmonary disease) Difficult intravenous access GERD (gastroesophageal reflux disease) Family History Medical History Relation Name Comments mouth cancer Brother Anesthesia problems Neg Hx Cancer Neg Hx Relation Name Status Comments Brother Social History Tobacco Use Types Packs/Day Years Used Date Smoking Tobacco: Former Cigarettes 0.5 20 1 258 - 1977 Smokeless Tobacco: Never AUDIT-C Answer Date Recorded Q1: How often do you have a drink containing alc ohol? Monthly or less 01/26/2022 Q2: How many drinks containi ng alcohol do you have on a typical day when you are drinking? 1 or 2 01/26/2022 Q3: How often do you have si x or more drinks on one occasion? 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 Gender Identity Not on file Sexual Orientation Not on file Obstetrics History Last Filed Vital Signs Vital Sign Reading Time Taken Comments Blood Pressure 157/67 01/26/2022 6:50 PM CDT Pulse 71 01/26/2022 6:50 PM CDT Temperature 36 C (96.8 F) 01/26/2022 6:20 PM CDT Respiratory Rate 18 01/26/2022 6:50 PM CDT Oxygen Saturation 98% 01/26/2022 6:50 PM CDT Inhaled Oxygen Concentration - - Weight 73.5 kg (162 lb 0.6 oz) 04/06/2024 8:39 A M CDT Height 157.5 cm (5' 2.01) 04/06/2024 8:39 AM CD T Body Mass Index 29.63 04/06/2024 8:39 AM CDT Plan of Treatment Health Maintenance Due Date Last Done Comments Colon Cancer Screening-Colonoscopy 1950 Depression Screening 1950 Hepatitis C Screening 1949 Osteoporosis Screening-Bone Density Scan 1949 DTaP/Tdap/Td Vaccine (1 - Tdap) 1960 Hepatitis B Screening 1967 Pneumococcal vaccine 65+ (1 of 2 - PCV) 1968 Zoster Vaccine (1 of 2) 1999 Well Visit 65+ 2014 Fall Risk Assessment 01/26/2023 01/26/2022 Covid-19 Vaccine (5 - 2023-2 5 season) 2024 07/06/2022, 07/11/2021, 12/18/2020, Additional history exists Influenza Vaccine (#1) 2025 , 07/11/2021, 08/04/2018, Additional history exists Breast Cancer Screening-Mammogram Discontinued 04/06/2024, 11/12/2022, 11/12/2022 Procedures Procedure Name Priority Date/Time Associated Diagnosis Comments SCREENING MAMMOGRAM BILATERAL W ALBERTO Schedule Routine, Read Routine (OP Routine) 04/06/2024 9:29 AM CDT Fibrocystic breast changes, bilateral Encounter for screening mammogram for malignant neoplasm of breast from Last 3 Months or Most Recently Relevant to Health Maintenance Results * Screening Mammogram Bilateral W Alberto (04/06/2024 9:29 AM CDT) Anatomical Region Laterality Modality Breast Bilateral Mammography Narrative 04/06/2024 5:47 PM CDT Mammogram Technique: Bilateral Digital Breast Tomosynthesis, Bilateral C-view 2D Screening mammogram. Views obtained: bilateral craniocaudal and bilateral mediolateral oblique. Computer Aided Detection was performed. Mammogram Findings: The present examination has been compared to prior imaging studies performed at [facility]. [facility] on 11/17/2021, and at [facility] on 11/12/2022. The breasts are heterogeneously dense, which may obscure small masses. There is no suspicious abnormality in either breast. There are no significant changes from the prior study. Impression: There is no mammographic evidence of malignancy. Annual screening mammography is recommended. If supplemental screening is desired, breast MRI would be recommended in this patient with heterogeneously dense breasts. OVERALL FINAL ASSESSMENT: BI-RADS CATEGORY 1: Negative. Procedure Note Billy Woods MD - 04/06/2024 Mammogram Technique: Bilateral Digital Breast Tomosynthesis, Bilateral C-view 2D Screening mammogram. Views obtained: bilateral craniocaudal and bilateral mediolateral oblique. Computer Aided Detection was performed. Mammogram Findings: The present examination has been compared to prior imaging studies performed at [facility]. [facility] on 11/17/2021, andat [facility] on 11/12/2022. The breasts are heterogeneously dense, which may obscure small masses. There is no suspicious abnormality in either breast. There are no significant changes from the prior study. Impression: There is no mammographic evidence of malignancy. Annual screening mammography is recommended. If supplemental screeningis desired, breast MRI would be recommended in this patient with heterogeneously dense breasts. OVERALL FINAL ASSESSMENT: BI-RADS CATEGORY 1: Negative. Pro Bobo NP IMG MAMMO PROCEDURES Final Result from Last 3 Months or Most Recently Relevant to Health Maintenance Insurance MEDICARE MEDICARE [employer] SENIOR SUPPLEMENT Care Teams Mate Chief Relationship Specialty [place] [address] [address] PCP - General Nurse Practitioner 11/21/21 Leo Smiley MD [address] [place] [address] Referring Physician Obstetrics and Gynecology 11/21/21 Christina Gleason MD PhD [id number] [place] [address] Surgeon Surgical Oncology 02/15/22
--- NOTE | 2025-05-07 14:39 | ED_ITS ---
HPI - Extremity Injury (Upper) General Chief Complaint: Extremity Injury, Upper Stated Complaint: left elbow pain Time Seen by Provider: 05/07/25 14:28 Source: patient and RN notes reviewed Mode of arrival: ambulatory Limitations: no limitations History of Present Illness HPI narrative: 74-year-old female presents to the ER complaining of fall today. Patient is changing her shower recurrence while she was standing on the side of her bathtub when she slipped and fell into the bathtub patient fell on her left side hitting her left elbow and left wrist. Patient says she hit the back of her head. Patient denies any loss of consciousness, neck pain, back pain, or any other injuries. Patient denies any dizziness, lightheadedness, vision changes, nausea, vomiting, chest pain cane or any breathing problems. Patient denies taking any blood thinners. Related Data Home Medications ?Medication ?Instructions ?Recorded ?Confirmed ?Last Taken ?Type lisinopril 10 mg tablet 10 mg PO DAILY 05/11/24 07/30/24 Unknown History Allergies Allergy/AdvReac Type Severity Reaction Status Date / Time prednisone Allergy Intermediate anxiety, Verified 05/07/25 14:07 diarrhea, vomiting levofloxacin AdvReac Intermediate Nausea Verified 05/07/25 14:07 Review of Systems Review of Systems: CONSTITUTIONAL: Denies fever, chills, or sweats. EYES: Denies visual changes, redness, or discharge. ENT: Denies rhinorrhea, congestion, sore throat, or otalgia. CARDIOVASCULAR: Denies chest pain, palpitations, dizziness, lightheadedness, or edema. RESPIRATORY: Denies cough or dyspnea. GASTROINTESTINAL: Denies abdominal pain, nausea, vomiting, or diarrhea. GENITOURINARY: Denies dysuria or hematuria. SKIN: Denies rash or itching. MUSCULOSKELETAL: Denies back pain, joint pain, or myalgia. Positive for left elbow and left wrist pain. NEUROLOGIC: Denies headache, numbness, or loss of consciousness go or weakness. PSYCHIATRIC: Denies anxiety or depression. All other systems reviewed are negative, except as documented in HPI. [facility] Past Medical History Medical History COPD (chronic obstructive pulmonary disease) History of COVID-19 Iron deficiency anemia Former smoker Surgical History Surgical History History of shoulder surgery No pertinent past surgical history Family History Family History Father Family history of heart disease in male family member before age 55 Heart disease Mother Family history of heart disease in male family member before age 55 Sibling Family history of heart disease in male family member before age 55 Heart disease Mouth cancer Sibling Heart disease Other Cerebrovascular accident Family history of cardiovascular disease Social History Social History Smoking packs per day: 1 Smoking cigarettes per day: 20.0 Years smoked: 20 Smoking pack-years: 20.00 Smoking status: Former smoker Tobacco type: cigarettes Second hand tobacco smoke exposure: Yes Smoking end date: 09/30/76 Additional smoking assessment comments: UP UNTIL 2013 WOULD SMOKE MAYBE COUPLE CIGARETTES EVERY NOW AND THEN Alcohol intake: current Alcohol use details: 2-3 DRINKS PER MONTH Substance use: never Substance use type: does not use Do You Feel Safe in your Home?: Yes Lack of Transportation: No Lack of Food: Never True Current Housing: I Have Housing Concerned About Future Housing: Decline to Answer Difficulty Paying Gas/Electric Bills: Decline to Answer Difficulty Paying for Meds: Decline to Answer Currently Unemployed: Decline to Answer Education: Decline to Answer Difficulty w/ Childcare or Family Care: Decline to Answer Living arrangements: with family Occupation/Education: retired 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 There is no relevant family history pertinent to the patient complaint. Exam Narrative: GENERAL: This is a well-nourished, well-developed adult, in no apparent distress. They are non ill-appearing, nontoxic appearing. HEAD: normocephalic, atraumatic. EYES: Sclera clear/white. Conjunctiva normal. Vision is grossly intact. Extraocular movements intact. Pupils PERRLA. EARS: External ears normal, Hearing grossly intact. NOSE: External nose normal no rhinorrhea. THROAT: Mucous membranes moist, NECK: Neck supple, non-tender without lymphadenopathy, masses or thyromegaly. No cervical point tenderness, crepitus, or step-offs. Nontender 3 for range of motion. CARDIOVASCULAR: Regular rate and rhythm without murmurs, gallops, or rubs. RESPIRATORY: Clear to auscultation. Breath sounds equal bilaterally. No wheezes, rales, or rhonchi. SKIN: warm, Dry, intact with no suspicious lesions or rash, good texture and turgor. NEURO: awake, alert, and oriented to person, place and time. There were no obvious focal neurologic abnormalities. EXTREMITIES: Left elbow: Mild tenderness to full range of motion. There is tenderness to palpation throughout the left elbow. No obvious deformity, brui sing, swelling, redness. Neurovascular status is intact distal injury. Capillary refill less than 2 seconds. Left wrist: My deformity, bruising, redness, swelling, injury. Tenderness to the dorsal surface of left wrist. Mild tenderness to full range of motion. Left radial pulse 2+ and palpable. Refill less than 2 seconds. Neurovascular status intact distal injury. BACK: Nontender without deformity. No CVA tenderness. No thoracic or lumbar point tenderness, crepitus, or step-offs. Course Course Emergency Course: Portions of this record may have been created with voice recognition software Vital Signs Vital signs: Vital Signs Temperature 98 F 05/07/25 14:03 Pulse Rate 100 05/07/25 14:03 Respiratory Rate 20 05/07/25 14:03 Blood Pressure 145/75 H 05/07/25 14:03 Pulse Oximetry 98 05/07/25 14:03 Oxygen Delivery Room Air 05/07/25 14:03 Temperature 98 F 05/07/25 14:03 Pulse Rate 100 05/07/25 14:03 Respiratory Rate 20 05/07/25 14:03 Blood Pressure 145/75 H 05/07/25 14:03 Pulse Oximetry 98 05/07/25 14:03 Oxygen Delivery Room Air 05/07/25 14:03 Reviewed MDM - Extremity Injury (Upper) MDM Narrative Medical decision making narrative: Since patient had back of head cannot exclude any intracranial injuries, will obtain head CT will obtain x-ray of left elbow and left wrist. 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 Patient has no neurological symptoms. X-ray of left wrist and left elbow were negative for any fractures or acute findings. Patient given Patricio wrap for compression and comfort. Discussed physical exam findings. Advised supportive measures and signs/symptoms to go to the ER. Pt is appropriate for outpt treatment and f/u. Differential Diagnosis Differential diagnosis: Likely other (Intracranial hemorrhage, closed head injury, wrist sprain, wrist fracture, elbow sprain, elbow fracture) Imaging Data Radiologist's impression: ITS Impressions Head CT 05/07/25 14:50 IMPRESSION: 1. No acute intracranial abnormality. 2: Chronic left frontal lobe infarction near the vertex. Elbow X-Ray 05/07/25 14:54 Impression: 1: Moderate joint effusion. No fracture identified. Consider conservative therapy and repeat x-rays in 7-to 10 days. Wrist X-Ray 05/07/25 14:57 IMPRESSION: 1: NO ACUTE BONE OR JOINT ABNORMALITY IDENTIFIED. Critical Care Time Critical Care Time Critical Care Time: No Discharge Plan Discharge Clinical Impression: Fall Qualifiers: Encounter type: initial encounter Qualified Code(s): W19.XXXA - Unspecified fall, initial encounter Injury of elbow, left Qualifiers: Encounter type: initial encounter Qualified Code(s): S59.902A - Unspecified injury of left elbow, initial encounter Injury of left wrist Qualifiers: Encounter type: initial encounter Qualified Code(s): S69.92XA - Unspecified injury of left wrist, hand and finger(s), initial encounter Patient Disposition: Home Condition: Stable Instructions: Elbow Sprain (ED), Wrist Sprain (ED) Additional Instructions: CT of your head was negative for any acute findings. The x-ray of your left elbow and left wrist were negative for any fractures or acute findings. Rest and elevate the arm; uses tolerated Apply ice 15-20 minute intervals several times a day Keep it wrapped with PATRICIO or you may use a wrist splint or elbow brace as well. Motrin 600mg -800mg every 6 to a 8 hours, alternate with Tylenol 1000mg every 6 to a 8 hours as needed Follow up with your primary care provider or orthopedist as needed in 1-2 weeks especially if pain is persisting. Return to the ER for any worsening symptoms especially if he develops severe headaches, dizziness, vision changes, lightheadedness, loss of consciousness, difficulty breathing, chest pains, nausea, vomiting, or any serious concerns. Patient Language: Hebrew Prescriptions: No Action lisinopril 10 mg tablet 10 mg PO DAILY fluticasone propion-salmeterol [Advair HFA] 115-21 mcg/actuation HFA aerosol inhaler 2 puff INHALATION BID 30 Days Qty: 12 11RF Rx Instructions: rinse and spit Follow-up/Referrals: Radha,Shruti Acharya APRN [Primary Care Provider] - Time of Disposition: 15:10
--- OUTSIDE RECORDS SUMMARY | 2025-05-07 15:22 | XMS_ITS | Continuity of Care Document ---
Author Organization [facility] Address [address] [place] [address] Phone Care Team Providers Care Answering Service Agent Name Role Phone Herlinda Dee Unavailable Unavailable Advance Directives Directive Yes / No Effective Date File Name No Information Encounters Encounter Description Practice Location Reason(s) For Visit Diagnoses Date Provider Providers Copied on Encounter [facility], [address], [place], [place], [id number], [place] tel:[phone] [facility] No Information Dec-2 1-200 0 Leila Pate. [address] , [address], [place], [address], [place]. tel:[phone] Family History Family Member Type Diagnosis Age At Onset No Information Payers Payer name Insurance type Covered democrat ID Authoriza tion(s) No Information Social History [...]
--- OUTSIDE RECORDS SUMMARY | 2025-05-07 15:22 | XMS_ITS | Clinical Summary ---
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 on 11/17/2021, and at [facility] on 11/12/2022. The breasts are heterogeneously dense, [...] compared to prior imaging studies performed at [facility]. [facility] on 11/17/2021, andat [facility] on 11/12/2022. The breasts are heterogeneously dense, [...] MEDICARE MEDICARE [employer] SENIOR SUPPLEMENT Care Teams Heater Operator Relationship Specialty [place] [address] [address] PCP - General Nurse Practitioner 11/21/21 Leo Smiley MD [address] [place] [address] Referring Physician Obstetrics and Gynecology 11/21/21 Christina Gleason MD PhD [phone] [place] [address] Surgeon Surgical Oncology 02/15/22
--- OUTSIDE RECORDS SUMMARY | 2025-05-07 15:22 | XMS_ITS | Clinical Summary ---
Author Organization [facility] Ekaterina Vigil Address [address] [place] [address] Care Team Providers Care Appeals Officer Name Role Phone Unavailable Primary Care Provider [...] Description 07/29/2025 2:15 PM CDT Office Visit [facility] Oncology and Hematology - [place] [address] [place] [address] [facility] [address] [place] [address] Josep Steward MD [address] [facility] [address] [place] [address] Health Maintenance Due Date Last [...] FLUIDS AND STOOLS Final Re sult NON [facility] from Last 3 Months or Most Recently Relevant to Health Maintenance Insurance MEDICARE PART A AND B AETNA MEDICARE SUPP AESSI
[2025-05-07 15:32] VITALS: BP 144/73; PULSE 81; RESP 20; TEMP 36.6; O2SAT 95
== END 2025-05-07 15:32 | disposition home or self-care (01) ==
LOC: ANHED 15:20
PROVIDERS: PCP Registered Nurse
DX: S09.90XA Unspecified injury of head, initial encounter (principal); S59.902A Unspecified injury of left elbow, initial encounter; S69.92XA Unspecified injury of left wrist, hand and finger(s), initial encounter; W18.2XXA Fall in (into) shower or empty bathtub, initial encounter; J44.9 Chronic obstructive pulmonary disease, unspecified; Z87.891 Personal history of nicotine dependence
CPT/HCPCS: 70450; 73080; 73110; 99284

== ENCOUNTER 2025-07-22 11:07 | Outpatient (CLI) | payer MEDICARE, SELFPAY ==
[2025-07-22 11:30] LABS: Hematocrit 43.2 % (37.0-47.0); Hemoglobin 13.6 g/dL (12.0-15.0); Mean Corpuscular HGB Conc 31.5 g/dl (32-36); Mean Corpuscular Hemoglobin 27.9 pg (26-34); Mean Corpuscular Volume 88.5 fl (80-100); Platelet Count Result 296 k/mm3 (150-375); Red Blood Count 4.88 M/mm3 (4.2-5.4); White Blood Count 5.7 K/mm3 (4.5-10.0)
[2025-07-22 12:14] LABS: Anion Gap 7 mmol/L (4-12); Blood Urea Nitrogen 33 mg/dL (7-17); Calcium 9.4 mg/dL (8.4-10.2); Carbon Dioxide 25 mmol/L (22-30); Chloride 105 mmol/L (98-107); Estimated Glomerular Filt Rate > 60; Glucose 89 mg/dL (65-110); Potassium 4.6 mmol/L (3.4-5.0); Sodium 137 mmol/L (137-145)
[2025-07-22 12:16] LABS: Iron 87 ug/dL (37-170)
--- OUTSIDE RECORDS SUMMARY | 2025-07-22 12:19 | XMS_ITS | Encounter Summary ---
Author Organization [facility] Address [address] [place] [address] Care Team Providers Care Sensitizer Name Role Phone SilkedianaSandra [facility] Primary Care Provider + Shruti Garcia APRN Primary Care Provider [phone] Encounter Details Date Type Department Care Team (Late st Contact Info) Description 01/31/2023 [employer]unk Message Enc [facility] Family & Internal Medicine [address] [address] EdithPeopleAdmin, [facility] Provider due for appointment Social History Tobacco Use Types Packs/Day Years Used Date Smoking Tobacco: Former Cigarettes 1 20 Smokeless Tobacco: Never Alcohol Use Standard Drinks/Week Comments Yes 0 (1 standard drink = 0.6 oz pur e alcohol) Occasional AUDIT-C Answer Date Recorded Q1: How often do you have a drink containing alc ohol? 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 No / Unsure 01/31/2023 7:35 AM CDT documented as of this encounter Functional Status * RETIRED Are you deaf or do you have serious difficulty hearing Answer Date of Assessment Author Status No 11/07/2020 1:21 PM MACHINERY MOVER Activ e * RETIRED Are you blind or do you have serious difficulty seeing, even when wearing glasses? Answer Date of Assessment Author Status No 11/07/2020 1:21 PM MACHINERY MOVER Activ e * Do you have serious difficulty walking or climbing stairs? Answer Date of Assessment Author Status No 11/07/2020 1:21 PM Humaira Patton RN Active * Do you have difficulty dressing or bathing? Answer Date of Assessment Author Status No 11/07/2020 1:21 PM Humaira Patton RN Active * Because of a physical, mental, or emotional condition, do you have difficulty doing errands alone such as visiting a doctor's office or shopping? Answer Date of Assessment Author Status No 11/07/2020 1:21 PM Humaira Patton RN Active * Over the past 2 weeks, how often have you been bothered by any of the following problems? Question Answer Date of Assessment Author Status Little interest or pleasure in doing things Not at all 01/31/2023 7:51 AM CDT Elsa Patel MA Active Feeling down, depressed, or hopeless Not at all 01/31/2023 7:51 AM DIPIKAT Elsa Patel MA Active Patient Health Questionnaire-2 Score 0 01/31/2023 7:51 AM CDT Elsa Patel MA Act kimberly documented as of this encounter Mental Status * Because of a physical, mental, or emotional condition, do you have serious difficulty concentrating, remembering, or making decisions? Answer Entry Date Author Status No 11/07/2020 1:21 PM Humaira Patton RN Active documented in this encounter Plan of Treatment Upcoming Encounters Date Type Department Care Team (Late st Contact Info) Description 08/02/2025 9:00 AM MACHINERY MOVER Office Visit [facility] Family & Internal Medicine [facility] [id number] [place] [address] Shruti Garcia APRN [address] [address] documented as of this encounter Goals Goal Patient Goal Type Associated Problems Recent Progress Patient-Stated? Author Safety - demonstrates understanding of home safety measures General No Kya Wright, RN documented as of this encounter Visit Diagnoses Not on filedocumented in this encounter Care Teams Sensitizer Relationship Specialty Start Date End Date Sandra Tomlinson FNP- PCP - General Nurse Practitioner Family 11/14/2005/08 Shruti Garcia APRN [address] [place] [address] PCP - General NURSE PRACTITIONER 05/09/23 documented as of this encounter
--- OUTSIDE RECORDS SUMMARY | 2025-07-22 12:19 | XMS_ITS | Clinical Summary ---
Author Organization [facility] Address [facility] [place] [address] Care Team Providers Care Crown Attacher Name Role Phone Shruti Garcia APRN Primary Care Provider [phone]- [phone] Allergies Active Allergy Reactions Criticality Noted Date Comments Levofloxacin Other (see comment) 11/14/2020 Makes her feel wierd Prednisolone Nausea and Vomiting High 04/22/2020 Sulfa Antibiotics Nausea and Vomiting High 0 Medications ADVAIR HFA 115-21 MCG/ACT inhaler Inhale 2 puffs into the lungs 2 (two) times daily. 10/21/2020 Active lisinopril (PRINIVIL) 10 MG tabletIndications :Primary hypertension Take 1 tablet (10 mg total) by mouth daily. 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 Overview (08/02/2023): Benign neoplasm of right ovary;Practice ID: [id number] Cyst of ovary 03/13/2019 Overview (08/02/2023): Unspecified ovarian cyst, right side;Practice ID: [id number] Unspecified ovarian cyst, unspecified side;Recorded Elsewhere: No Location: [facility] Source: EHR Chronic: N Practice ID: [id number] Billable Time: 09:45:00 AM Resolved Problems Problem Noted Date Diagnosed Date Resolved Date Fibrocystic breast changes, bilateral 11/17/2022 08/02/2023 Discharge from left nipple 01/18/2022 1 10/02/2022 Overview (03/15/2023): Added automatically from request for surgery [id number] Pneumonia due to COVID-19 virus 10/29/2020 08/02/2023 Pelvic and perineal pain 02/25/201911/2022 Overview (08/02/2023): Pelvic pain;Recorded Elsewhere: No Location: [facility] Source: EHR Chronic: N Practice ID: [id number] Billable Time: 02:45:00 PM Abdominal mass 11/09/2011 08/02/2023 Encounters Date Type Department Care Team Description 06/29/2025 Scan [facility] SRVCS Scanned, [facility] 06/28/2025 Scan [facility] SRVCS Scanned, [facility] 05/07/2025 Scan [facility] INFO SRVCS Scanned, Doc [facility] Image (SCAN); CT (SCAN) from Last 3 Months Immunizations Immunization Administration Dates Next Due Abrysvo Respiratory Syncytia l Virus (RSV) 0.5 mL, PF 11/24/2024 Arexvy Respiratory Syncytial Virus (RSV, adjuvanted) 0.5 mL, PF 10/25/2023 FLUAD (IIV, Trivalent, 0.5 M L Pre-filled Syringe) 11/06/2024 Fluad influenza vaccine, Iain drivalent (aIIV4), Inactivated, adjuvanted, preservative free, 0.5 mL,IM use 08/26/2023 Fluzone High Dose - >Age 65 (Prefilled Syringe) 07/06/2022 Influenza (Generic) 08/04/2018,08/01/2018 Influenza Adult (Generic) 08/26/2023,07/06/2022, 07/11/2021 MD.Voice COVID-19 (ORIGINAL FORMULATION, PURPLE CAP) mRNA, LNP-S, PF, 30 MCG/0.3 ML DOSE 07/06/2022,07/11/2021,12/18/2020,2020 PFIZER COVID-19 BIVALENT (12 +) mRNA, LNP-S, PF, 30 MCG/0.3 ML DOSE 07/06/2022 Family History Medical History Relation Comments Cancer Brother Heart Disease Father Heart Disease Mother Relation Status Comments Brother Father Mother Social History Tobacco Use Types Packs/Day Years Used Date Smoking Tobacco: Former Cigarettes 1 20 Smokeless Tobacco: Never Tobacco Cessation:Counseling Given: Yes Alcohol Use Standard Drinks/Week Comments Yes 3.3 (1 standard drink = 0.6 oz p ure alcohol) Occasional AUDIT-C Answer Date Recorded Q1: How often do you have a drink containing alc ohol? Never 10/26/2020 Average Number of Drinks Not on file 021 Frequency of Binge Drinking Not on file 10/01 PHQ-2 Answer Date Recorded Patient Health Questionnaire-2 Score 0 01/25/2025 Comments No Sex and Gender Information Value Date Recorded Sex Assigned at Not on file Legal Sex Female 11:11 AM COLLEGE SCOUTING COORDINATOR Gender Identity Not on file Sexual Orientation Not on file Last Filed Vital Signs Vital Sign Reading Time Taken Comments Blood Pressure 146/77 01/25/2025 9:59 AM CDT Pulse 83 01/25/2025 9:59 AM CDT Temperature 36.7 C (98.1 F) 01/25/2025 9:59 AM CDT Respiratory Rate 18 01/25/2025 9:59 AM CDT Oxygen Saturation 97% 01/25/2025 9:59 AM CDT Inhaled Oxygen Concentration - - Weight 69.9 kg (154 lb) 01/25/2025 9:59 AM CDT Height 152.4 cm (5') 01/25/2025 9:59 AM CDT Body Mass Index 30.08 01/25/2025 9:59 AM CDT Plan of Treatment Upcoming Encounters Date Type Department Care Team (Late st Contact Info) Description 08/02/2025 9:00 AM COLLEGE SCOUTING COORDINATOR Office Visit [facility] Medical Group Family & Internal Medicine [facility] [id number] [place] [phone] Shruti Garcia, SALESPERSON SHOES [address] [address] Health Maintenance Due Date Last Done Comments Colorectal Cancer Screening Colonoscopy (10 Years) 1950 Annual Medicare Wellness Visit 2014 COVID-19 Vaccine ( season) 2025 11/06/2024, 08/26/2023, 07/06/2022, Additional history exists Influenza Adult (#1) 2025 11/06/2024, 08/26/2023, 08/26/2023, Additional history exists Hepatitis C 08/27/2025 Postponed from 1967 (Patient will follow up with PCP) Pneumococcal Vaccine: 50+ Years (1 of 2 - PCV) 09/03/2025 Postponed from 1968 (Patient will follow up with PCP) DTaP, Tdap and Td Vaccines (1 - Tdap) 01/25/2026 Postponed from 1968 (Patient Refused) Dexa Scan (General) 01/25/2026 Postpone d from 2014 (Patient Refused) Lung Cancer Screening 01/25/2026 Postpo sommer from 1999 (Patient Refused) Zoster Vaccines (1 of 2) 01/25/2026 Pos tponed from 1999 (Going to Outside Clinic) RSV Immunization or 60+ Years Completed 11/24/2024, 10/25/2023 PHQ-2 (Physician [place]) Completed 01/25/2025 Hepatitis A Vaccines Aged Out No long er eligible based on patient's age to complete this topic Meningococcal B Vaccine Aged Out No l onger eligible based on patient's age to complete this topic Meningococcal Vaccine Aged Out No мария jagruti eligible based on patient's age to complete this topic RSV Immunizations Under 20 Months Aged Out No longer eligible based on patient's age to complete this topic Goals Goal Patient Goal Type Associated Problems Recent Progress Patient-Stated? Author Safety - demonstrates understanding of home safety measures General No Kya Wright, early childhood education instructor Procedure Name Priority Date/Time Associated Diagnosis Comments CT GENERIC 05/07/2025 IMAGE GENERIC 05/07/2025 IMAGE GENERIC 05/07/2025 from Last 3 Months Results * CT GENERIC (05/07/2025) Anatomical Region Laterality Modality Other 05/07/2025 [facility] Scanned SCANNING Final Resu lt * IMAGE GENERIC (05/07/2025) Only the most recent of2 resultswithin the time period is included. Anatomical Region Laterality Modality Other 05/07/2025 us [facility] Scanned SCANNING Final Resu lt from Last 3 Months Insurance MEDICARE [facility] Advance Directives * Full Code (Latest Code Status on File) Date Activated Date Inactivated Comments 11/02/2020 1:51 PM 11/07/2020 6:33 PM * Full Code Date Activated Date Inactivated Comments 10/29/2020 4:43 PM 11/02/2020 1:50 PM Care Teams Crown Attacher Relationship Specialty Start Date End Date Shruti Garcia APRN [id number] [address] PCP - General NURSE PRACTITIONER 05/09/23
--- OUTSIDE RECORDS SUMMARY | 2025-07-22 12:19 | XMS_ITS | Clinical Summary ---
Author Organization [facility] Address [address] [place] [address] Care Team Providers Care Load Dispatcher Name Role Phone Sandra Tomlinson NP Primary Care Provider [phone] -[phone] Leo Smiley MD Unavailable [phone] Christina Gleason MD PhD Unavaila ble [...] (01/18/2022): Added automatically from request for surgery [id number] Abdominal mass 11/09/2011 Surgical History Surgery Date Site/Laterality Comments AK TOTAL ABDOMINAL HYSTERECT W/WO RMVL TUBE OVARY [...] Smoking Tobacco: Former Cigarettes 0.5 20 1 608 - 1977 Smokeless Tobacco: Never AUDIT-C Answer [...] on file Legal Sex Female 3:16 AM YOUTH CORRECTIONS OFFICER Gender Identity Not on file Sexual Orientation [...] Assessment 01/26/2023 01/26/2022 Covid-19 Vaccine (5 - 2024-2 6 season) 2025 07/06/2022, 07/11/2021, 12/18/2020, Additional history exists Influenza [...] compared to prior imaging studies performed at [facility] on 11/17/2021, and at [facility] on 11/12/2022. The breasts are heterogeneously [...] compared to prior imaging studies performed at [facility] on 11/17/2021, andat [facility] on 11/12/2022. The breasts are heterogeneously [...] MEDICARE MEDICARE [employer] SENIOR [employer]LEMENT Care Teams Load Dispatcher Relationship Specialty [place] [address] [address] PCP - General Nurse Practitioner 11/21/21 Leo Smiley MD [address] [place] [address] Referring Physician Obstetrics and Gynecology 11/21/21 Christina Gleason MD PhD [id number] [place] [address] Surgeon Surgical Oncology 02/15/22
--- OUTSIDE RECORDS SUMMARY | 2025-07-22 12:19 | XMS_ITS | Encounter Summary ---
Author Organization [facility] Address [address] [place] [address] Care Team Providers Care Manager Behavior Name Role Phone SilkedianaSandra [facility]ODUCT[facility] Primary Care Provider + Shruti Garcia APRN Primary Care Provider [phone]- [phone] Encounter Details Date Type Department Care Team (Late st Contact Info) Description 03/27/2023 MyChart Message Enc [facility] Medical Group [facility] [address] [place], [place] [address] [facility] Provider Air Quality Message Social History Tobacco Use Types Packs/Day Years [...] Date Recorded Patient Health Questionnaire-2 Score 0 03/15/2023 Comments No Sex and Gender Information Value Date Recorded Sex Assigned at Not on file Legal Sex Female 11:11 AM FORMING TUBE SELECTOR Gender Identity Not on file Sexual Orientation Not on file COVID-19 Exposure Response Date Recorded In the last 10 days, have yo u been in contact with someone who was confirmed or suspected to have Coronavirus/COVID-19? No / Unsure 03/15/2023 6:59 AM CDT documented as of this encounter Functional Status * RETIRED Are you deaf or do you have serious difficulty hearing Answer Date of Assessment Author Status No 11/07/2020 1:21 PM FORMING TUBE SELECTOR Activ e * RETIRED Are you blind or do you have serious difficulty seeing, even when wearing glasses? Answer Date of Assessment Author Status No 11/07/2020 1:21 PM FORMING TUBE SELECTOR Activ e * Do you have serious [...] 1:21 PM Humaira Patton RN Active documented as of this encounter Mental Status * Because of a physical, mental, or emotional condition, do you have serious difficulty concentrating, remembering, or making decisions? Answer Entry Date Author Status No 11/07/2020 1:21 PM Humaira Patton RN Active documented in this encounter Plan of Treatment Upcoming Encounters Date Type Department Care Team (Late st Contact Info) Description 08/02/2025 9:00 AM FORMING TUBE SELECTOR Office Visit [facility] Medical Group Family & Internal Medicine [address] [address] Shruti Garcia APRN [address] [place] [address] documented as of this encounter Goals Goal Patient Goal Type Associated Problems Recent Progress Patient-Stated? Author Safety - demonstrates understanding of home safety measures General No Kya Wright RN documented as of this encounter Visit Diagnoses Not on filedocumented in this encounter Care Teams Manager Behavior Relationship Specialty Start Date End Date Sandra Tomlinson FNP- PCP - General Nurse Practitioner Family 11/14/2005/08 Shruti Garcia APRN [address] [address] PCP - General NURSE PRACTITIONER 05/09/23 documented as of this encounter
--- OUTSIDE RECORDS SUMMARY | 2025-07-22 12:19 | XMS_ITS | Clinical Summary ---
Author Organization [facility]ina [facility] Address [address] [address] Care Team Providers Care Excellence Manager Name Role Phone Unavailable Primary Care Provider [...] Encounters Date Type Department Care Team Description 07/21/2025 External Device Data STL ABSTRACTION Provider, Abstract 07/20/2025 External Device Data STL ABSTRACTION Provider, Abstract 06/22/2025 External Device Data STL ABSTRACTION Provider, Abstract 06/15/2025 External Device Data STL ABSTRACTION Provider, Abstract 06/08/2025 External Device Data STL ABSTRACTION Provider, Abstract [...] Description 07/29/2025 2:15 PM CDT Office Visit [facility] Oncology and Hematology - [place] [address] [facility] [address] [place] [address] Josep Steward MD [address] [facility] [address] [place] [address] Health Maintenance Due Date Last Done Comments DTAP/TDAP/TD VACCINES (1 - Tdap) 1969 PNEUMOCOCCAL VACCINE 50+ YEA RS (1 of 2 - PCV) 1968 Traditional Medicare (ACO) A nnual Wellness Visit 1968 FIT-DNA Q 3 years 1994 Flex Sig/CT Colonography Q 5 years 1994 ZOSTER VACCINE (1 of 2) 1999 OSTEOPOROSIS SCREENING 2014 FIT/FOBT Q 1 year 04/29/2021 04/29/2020 RSV VACCINE (60+ or ) (1 - 1-dose 75+ series) 2024 INFLUENZA VACCINE (#1) 2025 08/26/2023, 2021 COVID-19 Vaccine (5 - 2024-2 6 season) 2025 07/06/2022, 07/11/2021, 12/18/2020, Additional history exists COLORECTAL SCREENING 02/14/2028 02/13/2018 Colorectal Cancer Screening 02/14/2028 Procedures Procedure Name Priority Date/Time Associated Diagnosis Comments OCCULT BLOOD IMMUNOASSAY, COLORECTAL SCREEN Routine 04/29/2020 Chronic anemia from Last 3 Months or Most Recently Relevant to Health Maintenance Results * OCCULT BLOOD IMMUNOASSAY, COLORECTAL SCREEN (04/29/2020) Stool STOOL SPECIMEN / Unknown Josep Steward MD BODY FLUIDS AND STOOLS Final Re sult NON [facility] from Last 3 Months or Most Recently Relevant to Health Maintenance Insurance MEDICARE PART A AND B [employer] MEDICARE SUPP AESSI
--- OUTSIDE RECORDS SUMMARY | 2025-07-22 12:19 | XMS_ITS | Encounter Summary ---
Author Organization [facility] Address [address] [place] [address] Care Team Providers Care Guard Museum Name Role Phone Unavailable Primary Care Provider Unavailabl e Encounter Details Date Type Department Care Team (Late st Contact Info) Description 07/20/2025 External Device Data STL ABSTRACTION Provider, Abstract NO ADDRESS ON FILE Social History Tobacco Use Types Packs/Day Years Used Date Smoking Tobacco: Former Cigarettes Q uit: 04/22/1968 Smokeless Tobacco: Never Alcohol Use Standard Drinks/Week Comments Yes 0 (1 standard drink = 0.6 oz pur e alcohol) OCASSIONLLY Comments No Sex and Gender Information Value Date Recorded Sex Assigned at Not on file Legal Sex Female 8:34 AM CDT Gender Identity Not on file Sexual Orientation Not on file documented as of this encounter Plan of Treatment Upcoming Encounters Date Type Department Care Team (Late st Contact Info) Description 07/29/2025 2:15 PM CDT Office Visit [facility] Oncology and Hematology - [place] [address] [place] [address] [facility] [address] [place] [address] Josep Steward MD [address] [facility] [address] [place] [address] documented as of this encounter Visit Diagnoses Not on filedocumented in this encounter
--- OUTSIDE RECORDS SUMMARY | 2025-07-22 12:19 | XMS_ITS | Encounter Summary ---
Author Organization [facility] Address [address] [place] [address] Care Team Providers Care Supervisor [employer] Name Role Phone Unavailable Primary Care Provider Unavailabl e Encounter Details Date Type Department Care Team (Late st Contact Info) Description 07/21/2025 External Device Data STL ABSTRACTION [...] Description 07/29/2025 2:15 PM CDT Office Visit [facility] Oncology and Hematology - [place] [address] [place] [address] [facility] [address] [place] [address] Josep Steward MD [address] [facility] [address] [place] [address] documented as of this encounter Visit Diagnoses Not on filedocumented in this encounter
--- OUTSIDE RECORDS SUMMARY | 2025-07-22 12:19 | XMS_ITS | Data Portability ---
Author Organization 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 Plan of Treatment Reminders Order Date Submit Date Provider Last Modified By Organization Details Last Modified Time Details Appointments None recorded. Lab None recorded. Referral None recorded. Procedures None recorded. Surgeries None recorded. Imaging US, pelvis 2024 [address]25 [address], [address], [place], [address], 22:05:52 US, transvagina l [address], [address], [place], [address], 22:05:52 US, pelvis [address], [address], [place], [address], 19:10:16 US, transvagina l [address], [address], [place], [address], 19:10:16 Medication Orders None recorded. Patient TargetsNo targets recorded. Patient InstructionsNo instructions recorded. Reason for Referral None Reported. Results Created Date Observation Date Name Description Value Unit Range Abnormal Flag Note LastModifiedBy Organization Detail LastModifiedTime 11/17/19 22 11/17/2021 MAMMO , diagn ostic , digit al, bilat eral No observ ation record ed. [email or web address] [address], [place], [address], 11/20/2021 11:58:56 03/09/20 25 03/09/2025 US, pelvi s No observ ation record ed. [facility] [address], [place], [address], 03/09/2025 17:08:21 03/09/20 25 03/09/2025 US, trans vagin al No observ ation record ed. [facility] [address], [place], [address], 03/09/2025 17:08:30 03/10/20 25 03/09/2025 US, pelvi s No observ ation record ed. [address] [facility], [place], [address], 03/23/2025 15:31:20 07/08/20 25 07/08/2025 US, pelvi s No observ ation record ed. [facility] [address], [place], [address], 07/08/2025 15:22:23 07/08/20 25 07/08/2025 US, trans vagin al No observ ation record ed. [facility] [address], [place], [address], 07/08/2025 15:22:33 07/08/20 25 07/08/2025 US, pelvi s No observ ation record ed. [email or web address], [place], [address], 07/08/2025 22:51:36 Result Notes None recorded. Problems Name Problem SNOMED Code Status Onset Date Resolution Date Notes Provider Name and Address Organization Details Recorded Time Pelvic and perineal pain 135880093 Active 2018 Pelvic pain;Prakash rded Elsewhere : No Locati on: [facility] So urce: EHR Chron ic: N Practic e ID: [id number] Bill able Time: 02:45:00 PM Not Available [facility] 0 21:36:01 Cyst of ovary Active 2018 Unspecifi ed ovarian cyst, unspecifi ed side;Prakash rded Elsewhere : No Locati on: [facility] So urce: EHR Chron ic: N Practic e ID: [id number] Bill able Time: 09:45:00 AM Not Available [facility] 0 21:36:01 Cyst of ovary 19543107 Active 2018 Unspecifi ed ovarian cyst, right side;Prac janel ID: [id number] Not Available [facility] 0 21:36:02 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 Procedures Surgical History Date Name Laterality Status Provider Name and Address Organization Details Recorded Time 11/29/19 25 Date of Last Mammogram completed [place] [facility] 03/08/2025 14:18:06 05/13/20 24 repair of musculotendinous cuff of shoulder completed [place] [facility] 03/08/2025 14:22:56 01/28/20 22 Breast Surgery completed [place] [facility] 03/08/2025 14:22:29 09/30/19 21 Date of Last Colonoscopy completed [place] [facility] 03/08/2025 14:21:16 09/30/19 15 Cholecystectomy completed Diana Dunn [facility] 11/14/2021 10:55:23 09/30/19 00 procedure on brain completed [place] [facility] 11/14/2021 10:55:14 09/30/18 89 Partial Hysterectomy completed [place] [facility] 11/14/2021 10:55:01 laparoscopic bilateral salpingo-oophorecto my completed [facility] 11/14/2021 10:56:25 Imaging Results None recorded. Procedure Notes None recorded. Medical Equipment None Reported. Allergies Allergen ID Allergen Name Allergen Category Reaction Reaction Severity Criticality Documentation Date Start Date Code Code System Note Provider Name and Address Organization Details Recorded Time prednison e medicatio n vomiting Not available Not available 11/14/2021 8640 RxNorm Dianarigoberto Dunn [facility] 10:52:13 Medications Name Sig Start Date Stop Date Status Note LastModified by Organization Details LastModified Time Advair Diskus 100 mcg-50 mcg/dose powder for inhalatio n inhale 1 puff by inhalati on route 2 times every day in the morning and evening approxim ately 12 hours apart 2024 active Prescrib ed Elsewher e: Yes Loca tion: [facility] M odify By: [email or web address] Encounte r DateTime : 02/26/20 02:45:00 PM Not Available Not Available Not Available hydrocodo ne 7.5 mg-acetam inophen 325 mg tablet TAKE 1 TABLET BY MOUTH EVERY 4 HOURS NEEDED FOR PAIN 04/12 completed Not Available Not Available Not Available lisinopri l 10 mg tablet Take 1 tablet every day by oral route. active Not Available Not Available No t Available diclofena c sodium 75 mg tablet,de layed release TAKE 1 TABLET BY MOUTH TWICE DAILY active Not Available Not Available No t Available cefdinir 300 mg capsule TAKE 1 CAPSULE BY MOUTH EVERY 12 HOURS FOR 10 DAYS 04/09 completed Not Available Not Available Not Available Advair HFA 115 mcg-21 mcg/actua tion aerosol inhaler USE 2 INHALATI ONS BY MOUTH TWICE DAILY FOR 30 DAYS. RINSE AND SPIT active Not Available Not Available No t Available Contrave 8 mg-90 mg tablet,ex tended release TAKE 1 TABLET BY MOUTH TWICE DAILY FOR 7 DAYS THEN TAKE 2 TABLETS BY MOUTH TWICE DAILY 04/12 completed Not Available Not Available Not Available Vitals Date Recorded Body weight Systolic And Diastolic Provider Name and Address Organization Details Last Updated DateTime 11/14/2021 93466.52 g 168/84 mm[Hg] Diana Dunn [facility] 11/14/2021 10:51:42 Date Recorded Body height Body mass index (BMI) Body weight Systolic And Diastolic Systolic And Diastolic Provider Name and Address Organization Details Last Updated DateTime 03/08/2025 152.4 cm 29.7 kg/m2 37447.04 g 160/76 mm[Hg] 153/73 mm[Hg] [facility] 14:15:39 Date Recorded Body height Body mass index (BMI) Body weight Systolic And Diastolic Provider Name and Address Organization Details Last Updated DateTime 04/12/2025 152.4 cm 29.9 kg/m2 02985.63 g 146/69 mm[Hg] [facility] 04/12/2025 10:57:49 Social History Question Answer Notes LastModified by Organizat ion Details LastModified Time Tobacco Smoking Status Former Smoker Diana Dunn [facility] 11/14/2021 10:54:49 In The 14 Days Before Symptom Onset, Have You Had Close Contact With A Laboratory-confirm ed COVID-19 While That Case Was Ill? No Information n ot available 03/08/2025 In The 14 Days Before Symptom Onset, Have You Had Close Contact With A Person Who Is Under Investigation For COVID-19 While That Person Was Ill? No Information not available 03/08/2025 Have You Been To An Area Known To Be High Risk For COVID-19? No Information not available 03/08/2025 Sex: Unknown Functional Status None recorded. Mental Status None recorded. Family History Relationship Description Onset Age of this Age Resolved Age Notes LastModified by Organization Details LastModified Time Mother Heart disease [email or web address] Not available 2021 10:54:03 Mother Cyst of ovary [email or web address] Not available 2021 10:54:15 Father Heart disease [email or web address] Not available 2021 10:54:24 Brother Heart disease [email or web address] Not available 2021 10:54:26 Maternal Aunt Malignant neoplasm of breast Not available 2024 14:24:54 Medical History Condition Response Breast Problem Y Other Y Hypertension Y Lung Disease Y Gynecological History Statement/Question Response Abnormal Pap Y Date of Last Mammogram 11/28/2024 STIs/STDs N HPV Vaccine N Current Control Method Hysterectom y Age at First Child 18 If Post Menopausal, Age at Menopause 36 Date of Last Colonoscopy 09/30/2020 Sexually Active? Y Menses Monthly N Age of first menstrual cycle 13 Date of Last Pap Smear Sexual Problems? N LMP Unknown Obstetrics History GPAL:G 3 P 2 0 1 2 Type Value Full Term 2 Spontaneous 1 Living 2 Total 3 Past Encounters Encounter ID Performer Location Encounter Start Date Encounter Closed Date Diagnosis/Indication Diagnosis SNOMED-CT Code Diagnosis ICD10 Code Diagnosis IMO Codes Diagnosis Note [id number] Leo Smiley MD [facility] [address] [address] 11/14/2021 10:20:58 11/14/2021 11:22:44 Discharge from nipple 99942578 N64.52 this patient is a 71-year-ol d female reports clear nipple discharge. My examinatio n was normal. She denies any masses or skin changes. Is noted year ago. We agreed to screening mammogram and left breast ultrasound . We will make arrangemen ts for a breast specialist consultati on. [id number] Leo Smiley MD [facility] [address] [address] 03/08/2025 13:50:27 03/08/2025 14:49:17 Pain in pelvis 57822710 R10.2 74-year-ol d female with pelvic pain and history of ovarian cyst. Two obtain pelvic ultrasound and to have her return. Spent over 20 minutes on her Care in total [id number] Leo Smiley MD [facility] [address] [address] 03/09/2025 14:08:12 03/09/2025 15:04:45 Pelvic and perineal pain 363705248 R10.2 [id number] 74-year-ol d female with pelvic pain and history of ovarian cyst. Two obtain pelvic ultrasound and to have her return. Spent over 20 minutes on her Care in total [id number] Leo Smiley MD [facility] [address] [address] 04/12/2025 10:21:29 04/12/2025 11:29:44 Pain in pelvis 12746122 R10.2 [id number] this patient is a 74-year-ol d female presents for follow-up on pelvic ultrasound . She has had some intermitte nt pelvic pain. Sharp, cramping, within the pelvis. Pelvic ultrasound essentiall y normal. There is a nonspecifi c 1-1/2 cm left adnexal structure. It is avascular. The significan ce of this is uncertain. We agreed to repeat ultrasound 3 months and follow the finding. we shared images. I described the ultrasound show her. I spent over 20 minutes on her care. We discussed diagnostic possibilit ies. [id number] Leo Smiley MD [facility] [address] [address] 07/08/2025 09:16:53 07/08/2025 10:05:09 Pain in pelvis 78986291 R10.20 [id number] Health Concerns Section Related Observation LastModified by Organization Detai ls LastModified Time None Recorded Concern Status LastModified by Organization Details LastModified Time None Recorded Advance Directives Directive None Recorded Payers Insurance Date Sequence Insurance Name Policy Number Policy Del Angel Covered Member ID Del Angel Member ID Guarantor Name 07/05/2025 2 [employer] (MEDICARE SUPPLEMENT) Maribell Muñoz [id number] Maribell Muñoz 02/25/2025 2 [employer] - [employer] F (MEDICARE SUPPLEMENT) Maribell Muñoz [id number] Maribell Muñoz 07/05/2025 1 [place] Maribell Muñoz [id number] Maribell Muñoz Notes Date Note Type Note Provider Name and Address Organization Details Recorded Time 11/14/2021 text/html Breast MassRepor tremaine by PatientHPIFor associated symptoms, patient reportsnipple dischargebut reportsno fever,no skin redness,no arm pain,no arm swelling, andno chest pain. For location, patient reportsleft. For onset/timing, patient reports>4 monthsandgradual. For quality, patient reportsasymptomatic. For severity, patient reportsmoderate. For duration, patient reportspersistent. For context, patient reportsperforms breast self examination. Leo Smiley MD [address], [place], [address], [facility] 11/14/2021 11:21:30 03/08/2025 text/html Beer-Pelvic PainReported by Patient this patient is a 75-year-old female with pelvic pain. She has sharp left-sided pelvic pain. It is intermittent. It has worsened over time. It lasts minutes. The patient has a history of ovarian cyst. Nothing is palliative. Nothing is provocative. She has no vaginal bleeding. She has normal bowel movements. She denies any urinary symptoms. She denies nausea, vomiting, fever, chills. Denied any chest pain or shortness of breath. Leo Smiley MD [address], [place], [address], [facility] 03/08/2025 14:48:14 04/12/2025 text/html this patient is a 74-year-old female presents for follow-up on pelvic ultrasound. She has had some intermittent pelvic pain. Sharp, cramping, within the pelvis. Pelvic ultrasound essentially normal. There is a nonspecific 1-1/2 cm left adnexal structure. It is avascular. The significance of this is uncertain. We agreed to repeat ultrasound 3 months and follow the finding. we shared images. I described the ultrasound show her. I spent over 20 minutes on her care. We discussed diagnostic possibilities. Leo Smiley MD [address], [place], [address], [facility] 04/12/2025 11:28:04 OBGyn Episode Ob Episode Information Episode Created Date Number of Fetuses Patient Bloodtype Patient rh Status Prepregnancy Weight lbs Domestic Partner Domestic Partner Phone Father Name Card Checker Status 11/14/19 22 1 CLOSED Fetus Data First Name Last Name Admitted to NICU Weight (g) Sex Living Outcome Pediatric Complications Fetus ID Race Codes Race Delivery Type 2863.07 2704 M Full Term [id number] Vaginal Delivery Sekou Calculation Initial Sekou Date Initial Exam Date Initial Exam Provider Initial Ultrasound Date Last Menstrual Period Date Ultra Sound Weeks Gestation 0 Eighteen To Twenty Week Sekou Update Ultra Sound Date Fundal Height At Umbil Quickening Date Ultra Sound Latest Weeks Gestation Final Sekou Confirmed By Final Sekou Confirmed Date Final Sekou Date Ultra Sound Latest Days Gestation 0 0 Menstrual History Last Menstrual Date Menses Monthly On Bcp Conception Prior Menses Frequency Hcg Plus Date Menarche Onset Age Delivery Information Delivery Date Delivery Type Labor Anesthesia Weeks Gestation Incision Type Labor Labor Length Hrs Delivered By Post Complications Tubal Sterilization Discharge Date Comments 8 Discharge Information Feeding Method Contraceptive Method Maternal HG B and HCT Levels Ob Episode Information Episode Created Date Number of Fetuses Patient Bloodtype Patient rh Status Prepregnancy Weight lbs Domestic Partner Domestic Partner Phone Father Name Card Checker Status 11/14/19 22 1 CLOSED Fetus Data First Name Last Name Admitted to NICU Weight (g) Sex Living Outcome Pediatric Complications Fetus ID Race Codes Race Delivery Type , Spontane ous [id number] Sekou Calculation Initial Sekou Date Initial Exam Date Initial Exam Provider Initial Ultrasound Date Last Menstrual Period Date Ultra Sound Weeks Gestation 0 Eighteen To Twenty Week Sekou Update Ultra Sound Date Fundal Height At Umbil Quickening Date Ultra Sound Latest Weeks Gestation Final Sekou Confirmed By Final Sekou Confirmed Date Final Sekou Date Ultra Sound Latest Days Gestation 0 0 Menstrual History Last Menstrual Date Menses Monthly On Bcp Conception Prior Menses Frequency Hcg Plus Date Menarche Onset Age Delivery Information Delivery Date Delivery Type Labor Anesthesia Weeks Gestation Incision Type Labor Labor Length Hrs Delivered By Post Complications Tubal Sterilization Discharge Date Comments 8 Discharge Information Feeding Method Contraceptive Method Maternal HG B and HCT Levels Ob Episode Information Episode Created Date Number of Fetuses Patient Bloodtype Patient rh Status Prepregnancy Weight lbs Domestic Partner Domestic Partner Phone Father Name Card Checker Status 11/14/19 22 1 CLOSED Fetus Data First Name Last Name Admitted to NICU Weight (g) Sex Living Outcome Pediatric Complications Fetus ID Race Codes Race Delivery Type 2863.07 2704 F Full Term [id number] Vaginal Delivery Sekou Calculation Initial Sekou Date Initial Exam Date Initial Exam Provider Initial Ultrasound Date Last Menstrual Period Date Ultra Sound Weeks Gestation 0 Eighteen To Twenty Week Sekou Update Ultra Sound Date Fundal Height At Umbil Quickening Date Ultra Sound Latest Weeks Gestation Final Sekou Confirmed By Final Sekou Confirmed Date Final Sekou Date Ultra Sound Latest Days Gestation 0 0 Menstrual History Last Menstrual Date Menses Monthly On Bcp Conception Prior Menses Frequency Hcg Plus Date Menarche Onset Age Delivery Information Delivery Date Delivery Type Labor Anesthesia Weeks Gestation Incision Type Labor Labor Length Hrs Delivered By Post Complications Tubal Sterilization Discharge Date Comments 2 Discharge Information Feeding Method Contraceptive Method Maternal HG B and HCT Levels
[2025-07-22 12:25] LABS: Percent Iron Saturation 25 % (20-50)
[2025-07-22 12:57] LABS: Ferritin 18.40 ng/mL (11.1-264)
[2025-07-22 13:09] LABS: Vitamin B12 592.0 pg/mL (239-931)
== END 2025-07-22 11:08 | disposition home or self-care (01) ==
LOC: ANHLAB 11:09
PROVIDERS: PCP Registered Nurse; Visit Provider Internal Medicine Hematology & Oncology
DX: D64.9 Anemia, unspecified (principal)
CPT/HCPCS: 36415; 80048; 82607; 82728; 83540; 83550; 85027

== ENCOUNTER 2025-09-08 10:25 | Emergency (ER) | payer MEDICARE, SELFPAY ==
[2025-09-08 10:34] VITALS: BP 139/70; PULSE 67; RESP 16; TEMP 37.2; O2SAT 99
--- NOTE | 2025-09-08 10:38 | ED.SKABFB ---
HPI - Skin/Abscess/Foreign Bdy General Chief complaint: Extremity Problem,Nontraumatic Stated complaint: L MIDDLE FINGER REDNESS Time Seen by Provider: 09/08/25 10:26 Source: patient Mode of arrival: ambulatory Limitations: no limitations History of Present Illness HPI narrative: Maribell is a 75-year-old female patient presenting to the clinic today with complaints of left middle finger redness and pain. She reports symptoms have been going on for 10 days. Denies any known injury but is concerned she may have been bitten by an insect. Area is red and swollen and gradually becoming worse. Denies any fevers, chills, body aches. No previous treatment. Related Data Home Medications ?Medication ?Instructions ?Recorded ?Confirmed ?Last Taken ?Type lisinopril 10 mg tablet 10 mg PO DAILY 05/11/24 08/17/25 Unknown History Allergies Allergy/AdvReac Type Severity Reaction Status Date / Time prednisone Allergy Intermediate anxiety, Verified 08/17/25 07:07 diarrhea, vomiting levofloxacin AdvReac Intermediate Nausea Verified 08/17/25 07:07 Review of Systems Review of Systems: Pertinent positives per HPI. Patient denies any fever, chills, rash, headache, visual changes, dizziness, cough, runny nose, sore throat, shortness of breath, chest pain, palpitations, nausea, vomiting, diarrhea, constipation, abdominal pain, or any urinary issues. [facility] Past Medical History Medical History COPD (chronic obstructive pulmonary disease) History of COVID-19 Iron deficiency anemia Former smoker Surgical History Surgical History History of shoulder surgery No pertinent past surgical history Family History Family History Father Family history of heart disease in male family member before age 55 Heart disease Mother Family history of heart disease in male family member before age 55 Sibling Family history of heart disease in male family member before age 55 Heart disease Mouth cancer Sibling Heart disease Other Cerebrovascular accident Family history of cardiovascular disease Social History Social History Smoking packs per day: 1 Smoking cigarettes per day: 20.0 Years smoked: 20 Smoking pack-years: 20.00 Smoking status: Former smoker Tobacco type: cigarettes Second hand tobacco smoke exposure: Yes Smoking end date: 09/30/76 Additional smoking assessment comments: UP UNTIL 2013 WOULD SMOKE MAYBE COUPLE CIGARETTES EVERY NOW AND THEN Alcohol intake: current Alcohol use details: 2-3 DRINKS PER MONTH Substance use: never Substance use type: does not use Current Housing: Decline to Answer Concerned About Future Housing: Decline to Answer Difficulty Paying Gas/Electric Bills: Decline to Answer Difficulty Paying for Meds: Decline to Answer Currently Unemployed: Decline to Answer Education: Decline to Answer Difficulty w/ Childcare or Family Care: Decline to Answer Living arrangements: with family Occupation/Education: retired 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 There is no relevant family history pertinent to the patient complaint. Exam Narrative: General: Well-developed, well nourished, in no apparent distress Head: Normocephalic, atraumatic. Cardio: Regular rate and rhythm, s1 and s2 normal, no murmur appreciated. Resp: Clear to auscultation bilaterally, no rhonchi, rales, wheezing or rubs. Musculoskeletal: No deformity, redness and swelling noted to the left lateral finger that it feels extending around the cuticle of the left middle finger, tender to palpation, no active discharge at this time, grossly normal range of motion, muscle strength strong and equal, peripheral pulse strong, no edema, no cyanosis, normal gait and station Course Course Level of Care: Express Care Visit Vital Signs Vital signs: Vital Signs Temperature 37.2 C 09/08/25 10:34 Pulse Rate 67 09/08/25 10:34 Respiratory Rate 16 09/08/25 10:34 Blood Pressure 139/70 09/08/25 10:34 Pulse Oximetry 99 09/08/25 10:34 Temperature 37.2 C 09/08/25 10:34 Pulse Rate 67 09/08/25 10:34 Respiratory Rate 16 09/08/25 10:34 Blood Pressure 139/70 09/08/25 10:34 Pulse Oximetry 99 09/08/25 10:34 MDM MDM Narrative Medical decision making narrative: At the time of visit patient is resting comfortably on the exam table. Patient appears to be nontoxic. complaints of left middle finger redness and pain. She reports symptoms have been going on for 10 days. Denies any known injury but is concerned she may have been bitten by an insect. Area is red and swollen and gradually becoming worse. Denies any fevers, chills, body aches. No previous treatment. On exam patient has redness and swelling noted to the left lateral finger that it feels extending around the cuticle of the left middle finger, tender to palpation, no active discharge at this time, grossly normal range of motion, Plan: I suspect patient has a bacterial skin infection to the left lateral middle finger. Prescription for cephalexin was sent to the pharmacy. Encouraged to do warm Epsom salt soaks. May give Tylenol or Motrin as needed for pain or fever. Supportive measure were discussed with the patient and they voiced understanding discharge instructions and agrees to treatment plan. Return precautions reviewed Differential Diagnosis Differential Diagnosis: Differential diagnostic considerations for skin/abscess/foreign body issues include abscess of skin or subcutaneous tissue, foreign body, paronychia, viral exanthem, dermatophytosis, urticaria, herpes zoster, allergic reaction to drug, cellulitis, eczema, insect bites, impetigo, contact dermatitis, vasculitis. Discharge Plan Discharge Clinical Impression: Bacterial skin infection Patient Disposition: Home Condition: Stable Instructions: Antibiotic Form, Paronychia (ED) Additional Instructions: Increase fluids and stay well hydrated Take cephalexin as prescribed May take Tylenol/ibuprofen as needed for pain or fever as per bottle directions May do Epsom salt soaks 4 times daily with warm water Keep area clean and dry Do not try to drain the area yourself. Follow-up with your PCP in 3 days Patient Language: Welsh Prescriptions: New cephalexin 500 mg capsule 500 mg PO Q8H 7 Days Qty: 21 0RF No Action lisinopril 10 mg tablet 10 mg PO DAILY fluticasone propion-salmeterol [Advair HFA] 115-21 mcg/actuation HFA aerosol inhaler 2 puff INHALATION BID 30 Days Qty: 12 11RF Rx Instructions: rinse and spit Follow-up/Referrals: Radha,Shruti Acharya APRN [Primary Care Provider, Unknown] Time of Disposition: 10:40 Quality NIHSS Nursing Documentation ED NIHSS nursing documentation: reviewed/agree
== END 2025-09-08 10:43 | disposition home or self-care (01) ==
PROVIDERS: Emergency Provider Nurse Practitioner Family; PCP Registered Nurse
DX: L08.9 Local infection of the skin and subcutaneous tissue, unspecified (principal); B96.89 Other specified bacterial agents as the cause of diseases classified elsewhere; J44.9 Chronic obstructive pulmonary disease, unspecified; Z86.16 Personal history of COVID-19; Z87.891 Personal history of nicotine dependence
CPT/HCPCS: 99213; G0463

== ENCOUNTER 2025-09-13 11:28 | Outpatient (CLI) | payer MEDICARE, SELFPAY ==
--- NOTE | ~2025-09-13 | XR_ITS ---
EXAMINATION: XR hand LT 2V, 09/13/2025 11:40 [employer] HISTORY: possible foreign body WOUND TO DISTAL 3RD DIGIT COMPARISON: No comparisons available. Findings: No acute fracture or malalignment. No significant degenerative changes. Soft tissue swelling noted around the third digit. There is no metallic radiopaque foreign body identified Impression: No acute fracture or malalignment. Reviewed, dictated and finalized at location P. [employer] SUPERVISOR Impression: No acute fracture or malalignment.
== END 2025-09-13 11:29 | disposition home or self-care (01) ==
PROVIDERS: PCP Registered Nurse; Visit Provider Surgery
DX: S61.209A Unspecified open wound of unspecified finger without damage to nail, initial encounter (principal); X58.XXXA Exposure to other specified factors, initial encounter; R60.9 Edema, unspecified
CPT/HCPCS: 73120

== ENCOUNTER 2025-09-16 10:39 | Outpatient (CLI) | payer MEDICARE, SELFPAY ==
--- NOTE | ~2025-09-16 | CT_ITS ---
EXAM/PROCEDURE: CT abdomen pelvis wo con HISTORY: Other and unspecified ventral hernia with obstruction COMPARISON: February 052018 TECHNIQUE: Noncontrast CT of the abdomen and pelvis FINDINGS: No significant ventral hernia seen. Tiny omentum containing only umbilical hernia present. Large hiatal hernia with most of the gastric body and fundal portion herniated into the mediastinum, increased in size from the 2019 exam when it was moderate size. No evidence of gastric volvulus seen. Mild fibrotic and atelectatic changes in the left lung base. Lung bases are otherwise clear. Heart size normal with coronary artery calcifications. In the abdomen and pelvis, the bowel gas pattern is nonobstructive with no free air free fluid or pneumatosis seen. Normal size appendix and aorta. Moderate atherosclerotic calcification. Extensive bilateral parapelvic renal cysts similar to the previous study. Cholecystectomy clips. Liver spleen pancreas adrenal glands and urinary bladder grossly stable for technique. Diffuse degenerative changes throughout the bones No bulky mesenteric or retroperitoneal lymphadenopathy or masses seen. IMPRESSION: Directed noncontrast exam demonstrating large hiatal hernia with much of the gastric body and fundal portion herniated into the mediastinum. Size is increased from the 2019 exam. Other findings as above. Reviewed, dictated and finalized at location A. [facility] [employer]ODER IMPRESSION: Directed noncontrast exam demonstrating large hiatal hernia with much of the ga stric body and fundal portion herniated into the mediastinum. Size is increased from the 2019 exam. Other findings as above.
== END 2025-09-16 10:40 | disposition home or self-care (01) ==
PROVIDERS: PCP Registered Nurse; Visit Provider Surgery
DX: K44.0 Diaphragmatic hernia with obstruction, without gangrene (principal); K43.6 Other and unspecified ventral hernia with obstruction, without gangrene
CPT/HCPCS: 74176